=== PATIENT | female | born 1950 | race Caucasian/White ===

== ENCOUNTER → 2017-12-31 11:30 | Outpatient (CLI) | payer MEDICARE, SELFPAY ==
--- NOTE | 2017-12-31 11:36 | RAD_ITS ---
STUDY: X-RAY - UNILATERAL RIBS ( RIGHT ) WITH CHEST REASON FOR EXAM: Female, 67 years old. Posterior lower right rib pain following a fall. TECHNIQUE - RIBS: 3 view(s) of the ribs. TECHNIQUE - CHEST: Single PA view of the chest. COMPARISON: Comparison is made with prior chest radiograph dated June 11, 2017. FINDINGS - RIBS: Normal visualized ribs without a demonstrated fracture. FINDINGS - CHEST: The lungs are clear and expanded. There is no demonstrated pleural abnormality. Normal size heart. Normal mediastinum and farhan. Normal visualized pulmonary arteries. Normal visualized aortic arch and descending thoracic aorta. Normal visualized thoracic spine. Normal visualized ribs, clavicles, and shoulders. Large hiatal hernia. RAD/Ribs Uni Min 3V w/PA Chest IMPRESSION: RIBS: Normal x-ray examination of the ribs. CHEST: Large hiatal hernia. Electronically Signed: Kem Holley MD at 12:44 EST Tel [phone], Service support ,
== END ==
PROVIDERS: Family Provider Internal Medicine; PCP Internal Medicine; Visit Provider Internal Medicine
DX: K44.9 Diaphragmatic hernia without obstruction or gangrene (principal); R07.81 Pleurodynia
CPT/HCPCS: 71101

== ENCOUNTER 2019-12-27 17:43 | Emergency (ER) | payer MEDICARE, SELFPAY ==
[2019-12-27 17:44] VITALS: BP 169/89; PULSE 87; RESP 20; TEMP 39.2; O2SAT 95; BMI 34.2
--- NOTE | 2019-12-27 19:17 | ED.DCSUM_ITS ---
- ER Visit Summary Date of Service: 12/27/19 Chief Complaint: Fever on Chemotherapy day 2 History of Present Illness: The patient is a 69 F history of multiple myeloma and has been hypertension. On day [address] Horn of oncology. Patient states tonight at 5 PM she developed a fever of 102. No vomiting. No diarrhea. No dysuria. No significant cough. No severe abdominal pain. No headache, chest pain or neck stiffness. No rashes. Physical Examination: Older female no acute distress temperature 102.6. Does not look septic or toxic. H EENT exam unremarkable. Moist with membranes. Posterior pharynx erythema or exudate. TMs normal. Neck nontender. No lym phadenopathy. No meningismus. Lungs clear to auscultation bilaterally. Heart regular rhythm no murmur rate about 90. Abdomen soft, nontender, nondistended normal bowel sounds no peritoneal signs. Extremities moves all 4. No edema. Skin no rashes. No petechiae or purpura. Back nontender. Neurologically she is awake and alert with no focal motor deficits. Moving all 4 extremities. Test Results: Chest x-ray 2 views shows a hiatal hernia otherwise no acute abnormality read both myself and the radiologist. No infiltrate. CBC shows a white count 8. Hemoglobin 9.3 she runs a baseline anemia but there is no old CBCs in our computer for comparison. Chemistries unremarkable except BUN 27 creatinine 1.68 she has known renal insufficiency. Liver enzymes normal. UA positive nitrates 3+ bacteria but no whites or red cells. Urine and blood culture sent. Lactate 2.1. Emergency Department Course and Treatment: Older female on chemotherapy for multiple myeloma immunocompromised with a fever. She will undergo a neutropenic fever work-up. Treated with p.o. Tylenol and IV fluids. Treatment Plan: Repeat exam she is doing well. Currently her temperature is 100.3 after p.o. Tylenol. She received IV fluids. Exam is benign. Abdomen is benign. She and I discussed her test results. I spoke with the oncologist on- call was was Dr. Scout Valentine. Due to her urine he does want me to start her on a dose of IV Rocephin. Discharge her home on Keflex and they will follow-up tomorrow. Disposition: Discharge Impression: Fever and immunocompromised on chemotherapy Rule out UTI with urine culture pending History of multiple myeloma This note was generated with Dragon dictation software. It may contain incorrect words, spelling, and punctuation that were not noted in review of the chart prior to signing ED Disposition - Plan for ED Patient: Referrals: Quique Latif DO [Primary Care Provider] -
[2019-12-27 19:24] VITALS: BP 169/86; PULSE 87; RESP 20; TEMP 39.2; O2SAT 95
[2019-12-27] MEDS: 0.9% Normal Saline 1,000 ML 999 ML IV (19:25)
--- NOTE | 2019-12-27 19:59 | RAD_ITS ---
STUDY: X-RAY CHEST REASON FOR EXAM: Female, 69 years old. Fever TECHNIQUE: PA and lateral views of the chest COMPARISON: X-ray chest June 11, 2017 FINDINGS: The lungs are clear. There are no pleural effusions. There is no pneumothorax. The heart is normal in size. The visualized osseous structures are within normal limits. A large hiatal hernia is present. RAD/Chest PA and Lateral IMPRESSION: No acute thoracic pathology. Large hiatal hernia. Electronically Signed: Keny Mark, at 20:21 EST Tel , Service support ,
[2019-12-27 20:02] LABS: Absolute Lymphocyte Count 0.24 X10^3/uL (0.83-4.51); Absolute Neutrophil Count 8.2 X10^3/uL (2.0-7.7); Basophil# 0.02 X10^3/uL; Basophil% 0.2 % (0-1); Eosinophil# 0.01 X10^3/uL; Eosinophils% 0.1 % (0-5); Hematocrit 30.8 % (37-47); Hemoglobin 9.3 g/dL (12.0-15.0); Lymphocyte # 0.24 X10^3/ul (4.0); Lymphocyte % 2.7 % (19-41); Mean Corp Hgb Conc 30.2 g/dL (32-36); Mean Corpuscular Hgb 30.3 pg (27.0-32.0); Mean Corpuscular Volume 100.3 fL (81-99); Monocyte# 0.23 X10^3/uL; Monocyte% 2.6 % (0-10); NRBC Flagged by Analyzer 0.2 % (0-5); Neutrophil # 8.19 X10^3/uL (2.7-7.7); Neutrophil % 93.4 % (47-70); POSITIVE DIFFERENTIAL YES; Platelet Count 225 K/mm3 (150-450); RBC Distribution Width SD 54.7 fl (35.1-43.9); Red Blood Count 3.07 M/mm3 (4.2-5.4); White Blood Count 8.8 K/mm3 (4.4-11.0)
[2019-12-27 20:06] LABS: Differential Indicated SCAN CRITERIA MET
[2019-12-27 20:11] LABS: ALB/GLOB Ratio 0.9 RATIO (0.9-2.4); AST(SGOT) 28 U/L (15-37); Alanine Aminotransfer ALT/SGPT 31 U/L (13-56); Albumin, Serum 3.4 g/dL (3.2-5.0); Alkaline Phosphatase 83 U/L (45-117); Anion Gap 6 (5-15); BUN 27 mg/dL (7-18); BUN/Creat Ratio 16.1 RATIO (10-20); Calcium,Total 9.3 mg/dL (8.5-10.1); Chloride 110 mmol/L (98-107); Creatinine, Serum 1.68 mg/dL (0.55-1.02); EST Glomerular Filtration Rate 32 mL/min (>60); Est Glom Filt Rate - Afr Amer 39 mL/min (>60); Estimated Creatinine Clearance 23.85 ml/min; Globulin 3.8 g/dL (2.2-4.2); Glucose 87 mg/dL (74-106); Potassium 4.6 mmol/L (3.5-5.1); Protein, Total 7.2 g/dL (6.4-8.2); Sodium Level 140 mmol/L (136-145)
[2019-12-27 20:21] LABS: Differential Comment SCANNED
[2019-12-27 20:22] LABS: Lactic Acid 2.1 mmol/L (0.4-1.9)
[2019-12-27] MEDS: Acetaminophen 500 MG Tablet 1000 MG PO (20:47)
[2019-12-27 20:52] VITALS: BP 110/80; PULSE 91; RESP 20; TEMP 37.9; O2SAT 94
[2019-12-27 20:55] LABS: Mucous, Urine 0 SEEN /hpf (<or=2+); Red Blood Cells-Urine 0 SEEN /hpf (0-5); Squamous Epithelial Cells - UA 0 SEEN /hpf (5-10)
[2019-12-27 20:56] LABS: Color, Urine Yellow (Yellow); Glucose, Dipstick Normal (Normal); Ketone-Dipstick Negative (Negative); Leukocyte Esterase-Dipstick 25 /ul (Negative); Nitrite-Dipstick Positive (Negative); Occult Blood-Urine 25 /ul (Negative); Protein-Dipstick 30 mg/dl (Negative); Urine Bilirubin Dipstick Negative (Negative); Urine Clarity Sl. Cloudy (Clear); Urine Urobilinogen Normal (Normal)
[2019-12-27 21:18] LABS: Bacteria 3+ /hpf (None Seen); White Blood Cells 0-5 SEEN /hpf (0-5)
[2019-12-27 22:26] VITALS: BP 172/87; PULSE 74; RESP 17; TEMP 37.1; O2SAT 97
--- NOTE | 2019-12-27 22:28 | ED.DEP ---
ED Disposition - Plan for ED Patient: Disposition: Home or Assisted Living Instructions: FEBRILE ILLNESS, Uncertain Cause (Adult) Prescriptions: Cephalexin [Keflex] 500 mg PO Q6 #30 cap Prescription Printed Referrals: Irasema Horn MD [STAFF PHYSICIAN] - 1 Day Additional Instructions: Fluids and rest. Tylenol for fever. Follow-up with Dr. Moseley's office tomorrow. Return if feeling worse. We sent blood and urine cultures. We are waiting for those results. We will treat you for possible UTI since you have bacteria in your urine tonight. We will waiting on the culture results.
[2019-12-27] MEDS: Ceftriaxone 1 GM/50 ML BAG IV (22:35)
[2019-12-27 22:49] VITALS: BP 129/70; PULSE 72; TEMP 37.3; O2SAT 97
[2019-12-27 23:54] LABS: Reflex Lactate? Y
== END 2019-12-27 23:33 | disposition home or self-care (01) ==
PROVIDERS: Emergency Provider Emergency Medicine; PCP Student in an Organized Health Care Education/Training Program
DX: R50.2 Drug induced fever (principal); T45.1X5A Adverse effect of antineoplastic and immunosuppressive drugs, initial encounter; Y92.9 Unspecified place or not applicable; C90.00 Multiple myeloma not having achieved remission; I10 Essential (primary) hypertension; Z79.82 Long term (current) use of aspirin
CPT/HCPCS: 36415; 71046; 80053; 81001; 83605; 85025; 87040; 87077; 87086; 87088; 87186; 96365; 99285; J7030; A4216

== ENCOUNTER → 2020-01-16 10:05 | Outpatient (CLI) | payer MEDICARE, SELFPAY ==
[2019-12-27 17:44] VITALS: BMI 34.2
[2020-01-16] VITALS (7 sets, daily range): BP systolic 119–146; BP diastolic 58–72; PULSE 54–83; RESP 16; TEMP 36.6–36.9; O2SAT 95–98; BMI 31.6
[2020-01-16] MEDS: Acetaminophen 325 MG Tablet 650 MG PO (10:44)
== END ==
PROVIDERS: PCP Student in an Organized Health Care Education/Training Program; Referring Provider Internal Medicine Hematology & Oncology; Visit Provider Internal Medicine Hematology & Oncology
DX: Z51.89 Encounter for other specified aftercare (principal); C90.00 Multiple myeloma not having achieved remission; D64.81 Anemia due to antineoplastic chemotherapy
CPT/HCPCS: 36430; 86850; 86900; 86901; 86920; 86922; J7040; P9016; A4216

== ENCOUNTER → 2020-02-12 11:51 | Outpatient (CLI) | payer MEDICARE, SELFPAY ==
[2020-01-16 10:17] VITALS: BMI 31.6
[2020-02-12 12:01] VITALS: BP 109/48; PULSE 65; RESP 16; TEMP 36.2; O2SAT 98; BMI 31.6
[2020-02-12] MEDS: 0.9% Saline Lock 10 ML Syringe IV (12:23)
[2020-02-12 12:52] VITALS: BP 95/46; PULSE 61; RESP 18; TEMP 36.9; O2SAT 99
[2020-02-12 13:52] VITALS: BP 99/51; PULSE 63; RESP 18; TEMP 36.7; O2SAT 97
[2020-02-12 14:45] VITALS: BP 119/51; PULSE 57; RESP 18; TEMP 36.6; O2SAT 98
== END ==
PROVIDERS: PCP Student in an Organized Health Care Education/Training Program; Referring Provider Internal Medicine Hematology & Oncology; Visit Provider Internal Medicine Hematology & Oncology
DX: Z51.89 Encounter for other specified aftercare (principal); C90.00 Multiple myeloma not having achieved remission
CPT/HCPCS: 36430; 86850; 86900; 86901; 86920; 86922; J7040; P9016; A4216

== ENCOUNTER → 2020-02-20 08:23 | Outpatient (CLI) | payer MEDICARE, SELFPAY ==
[2020-02-12 12:01] VITALS: BMI 31.6
[2020-02-20] VITALS (9 sets, daily range): BP systolic 99–136; BP diastolic 48–68; PULSE 63–83; RESP 16; TEMP 36.4–37.6; O2SAT 97–99; BMI 32.1
[2020-02-20] MEDS: Acetaminophen 325 MG Tablet 650 MG PO (09:07)
== END ==
PROVIDERS: PCP Student in an Organized Health Care Education/Training Program; Referring Provider Internal Medicine Hematology & Oncology; Visit Provider Internal Medicine Hematology & Oncology
DX: Z51.89 Encounter for other specified aftercare (principal); D64.9 Anemia, unspecified
CPT/HCPCS: 36430; 86850; 86900; 86901; 86920; 86922; J7040; P9016; A4216

== ENCOUNTER 2021-01-06 12:05 | Outpatient (RCR) | payer MEDICARE, SELFPAY ==
[2020-02-20 09:07] VITALS: BMI 32.1
== END 2021-01-06 23:59 ==
LOC: IMMUN 12:05
PROVIDERS: PCP Student in an Organized Health Care Education/Training Program; Visit Provider Family Medicine
DX: Z23 Encounter for immunization (principal)
CPT/HCPCS: 0011A; 0012A

== ENCOUNTER 2022-10-19 12:10 | Emergency (ER) | payer MEDICARE, SELFPAY ==
[2022-10-19 12:11] VITALS: BP 145/80; PULSE 93; RESP 18; TEMP 38.9; O2SAT 94; BMI 28.5
[2022-10-19 13:32] VITALS: BP 126/78; PULSE 78; RESP 16; TEMP 38.1; O2SAT 98
--- NOTE | 2022-10-19 13:41 | EKG12_ITS ---
Test Reason : Blood Pressure : / mmHG Vent. Rate : 089 BPM Atrial Rate : 089 BPM P-R Int : 146 ms QRS Dur : 098 ms QT Int : 366 ms P-R-T Axes : 045 025 031 degrees QTc Int : 445 ms Normal sinus rhythm Normal ECG Confirmed by RAMANDEEP ELISE, OLAF ([id number]), publications editor WALKER PATTERSON ([id number]) on 10/21/2022 11:09:54 AM Referred By: Confirmed By:OLAF SABILLON MD
[2022-10-19 13:43] VITALS: O2SAT 98
--- NOTE | 2022-10-19 13:51 | NURSING ---
NO OLD EKGS
[2022-10-19 14:08] LABS: Absolute Lymphocyte Count 0.23 X10^3/uL (0.83-4.51); Absolute Neutrophil Count 4.5 X10^3/uL (2.0-7.7); Basophil# 0.01 X10^3/uL; Basophil% 0.2 % (0-1); Hematocrit 39.1 % (37-47); Hemoglobin 12.7 g/dL (12.0-15.0); Lymphocyte # 0.23 X10^3/ul (0.83-4.51); Lymphocyte % 4.2 % (19-41); Mean Corp Hgb Conc 32.5 g/dL (32-36); Mean Corpuscular Hgb 34.3 pg (27.0-32.0); Mean Corpuscular Volume 105.7 fL (81-99); Mean Platelet Vol. 9.9 fl (6.2-12.0); Monocyte# 0.76 X10^3/uL; Monocyte% 13.8 % (0-10); NRBC Flagged by Analyzer 0 % (0-5); Neutrophil # 4.47 X10^3/uL (2.7-7.7); Neutrophil % 81.4 % (47-70); POSITIVE DIFFERENTIAL YES; Platelet Count 109 K/mm3 (150-450); RBC Distribution Width CV 13.9 % (11.6-14.6); RBC Distribution Width SD 54.5 fl (35.1-43.9); White Blood Count 5.5 K/mm3 (4.4-11.0)
[2022-10-19 14:09] LABS: Differential Indicated SCAN CRITERIA MET
[2022-10-19 14:15] LABS: Anion Gap 8 (5-15); BUN 24 mg/dL (7-18); BUN/Creat Ratio 16.2 RATIO (10-20); Chloride 109 mmol/L (98-107); Creatinine, Serum 1.48 mg/dL (0.55-1.02); EST Glomerular Filtration Rate 37 mL/min (>60); Est Glom Filt Rate - Afr Amer 45 mL/min (>60); Estimated Creatinine Clearance 25.93 ml/min; Glucose 124 mg/dL (74-106); Sodium Level 139 mmol/L (136-145)
--- NOTE | 2022-10-19 14:18 | RAD_ITS ---
STUDY: X-RAY CHEST REASON FOR EXAM: Female, 72 years old. cough/sob TECHNIQUE: Single AP portable view of the chest. COMPARISON: None. FINDINGS: Poor inspiration with some bibasilar atelectasis. There is no demonstrated pleural abnormality. There is moderate cardiac enlargement. Large hiatal hernia. Normal visualized pulmonary arteries. Normal visualized aortic arch and descending thoracic aorta. Normal visualized thoracic spine. Healed fracture the posterior lateral right seventh rib. There is no demonstrated abnormality of the visualized soft tissue structures of the upper abdomen. RAD/Chest 1 View (Portable) IMPRESSION: Poor inspiration with some bibasilar atelectasis. Electronically Signed: Toñito Coker MD at 15:02 EST ,
--- NOTE | 2022-10-19 14:24 | EX.ED.VIS.UR ---
HPI <TORRI Guerra - Last Filed: 10/19/22 15:21> HPI - URI History of Present Illness Chief Complaint: Cough Narrative Narrative: Patient presents today for cold-like symptoms that started yesterday. She states she thinks she may have had a fever yesterday because she felt chilled and she also began coughing yesterday. 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 Patient also has a history of shingles that erupted under both breasts and across her upper abdomen. Since then she has had pain in this area but is being treated for this by her PCP with gabapentin. Patient denies dysuria, hematuria, shortness of breath, chest pain, abdominal pain, nausea, vomiting, and diarrhea. She denies sick contacts. [facility] <TORRI Guerra - Last Filed: 10/19/22 15:21> [facility] Home Medications acyclovir 400 mg tablet 400 mg PO BID 12/27/19 [History Last Taken Unknown] allopurinol 300 mg tablet 300 mg PO DAILY 12/27/19 [History Last Taken Unknown] aspirin 81 mg chewable tablet 81 mg PO DAILY@0800 12/27/19 [History Last Taken Unknown] beclomethasone dipropionate 80 mcg/actuation HFA breath activated aerosol 1 puff inhalation BID 12/27/19 [History Last Taken Unknown] carvedilol 6.25 mg tablet 6.25 mg PO BID 12/27/19 [History Last Taken Unknown] cephalexin 500 mg capsule 500 mg PO Q6 #30 caps 12/27/19 [Rx Last Taken Unknown] dexamethasone 4 mg tablet 20 mg PO .COMPLEX 12/27/19 [History Last Taken Unknown] lenalidomide 25 mg capsule 25 mg PO DAILY 12/27/19 [History Last Taken Unknown] lisinopril 20 mg tablet 20 mg PO DAILY 12/27/19 [History Last Taken Unknown] ondansetron 4 mg disintegrating tablet 8 mg PO Q8H PRN PRN Nausea 12/27/19 [History Last Taken Unknown] pregabalin 75 mg capsule 75 mg PO BID 12/27/19 [History Last Taken Unknown] Allergy/AdvReac Type Severity Reaction Status Date / Time erythromycin base Allergy Hives Verified 10/19/22 12:11 lactose AdvReac Diarrhea Verified 10/19/22 12:11 Social History Smoking Status: Never smoker EXAM <TORRI Guerra - Last Filed: 10/19/22 15:21> Physical Exam Const Vital Signs: 10/19/22 12:11 10/19/22 13:32 10/19/22 13:32 Temperature 102.1 F H 100.6 F H Temperature Source Temporal Oral Pulse Rate 93 78 Respiratory Rate 18 16 Respiratory Pattern Normal Blood Pressure 145/80 H 126/78 H Blood Pressure Mean 101 94 Pulse Ox 94 98 Oxygen Delivery Method Room Air Room Air 10/19/22 13:43 10/19/22 13:43 10/19/22 15:01 Temperature 99.1 F Temperature Source Pulse Rate 76 Respiratory Rate 18 Respiratory Pattern Blood Pressure 134/78 H Blood Pressure Mean Pulse Ox 98 99 Oxygen Delivery Method Room Air Room Air <Dr. Ciro Craig DO - Last Filed: 10/19/22 15:12> Physical Exam Const Vital Signs: 10/19/22 12:11 10/19/22 13:32 10/19/22 13:32 Temperature 102.1 F H 100.6 F H Temperature Source Temporal Oral Pulse Rate 93 78 Respiratory Rate 18 16 Respiratory Pattern Normal Blood Pressure 145/80 H 126/78 H Blood Pressure Mean 101 94 Pulse Ox 94 98 Oxygen Delivery Method Room Air Room Air 10/19/22 13:43 10/19/22 13:43 10/19/22 15:01 Temperature 99.1 F Temperature Source Pulse Rate 76 Respiratory Rate 18 Respiratory Pattern Blood Pressure 134/78 H Blood Pressure Mean Pulse Ox 98 99 Oxygen Delivery Method Room Air Room Air MDM <TORRI Guerra - Last Filed: 10/19/22 15:21> [facility] MDM Narrative Medical decision making narrative: Patient positive for influenza A. I have educated her on supportive care measures and encouraged her to drink plenty of fluids. She stated she is able to drink p.o. fluids without difficulty so I do not feel IV fluids are necessary. Chest x-ray without infiltrate. She was given Tylenol for fever control. O2 sat 99% upon reexamination. Patient is having no respiratory difficulty. I am comfortable with patient discharging home with return instructions. Patient is comfortable with plan. Lab Data Attestation: I reviewed the patient's lab results. Lab results narrative: Low red blood cell count, elevated MCV and MCH, platelet count 109. Evaded monocytes and neutrophils and decreased lymphocytes. Elevated BUN and creatinine. Labs: Laboratory Results - last 24 hr 10/19/22 10/19/22 13:55 13:55 WBC 5.5 RBC 3.70 L Hgb 12.7 Hct 39.1 MCV 105.7 H MCH 34.3 H MCHC 32.5 RDW Std Deviation 54.5 H RDW Coeff of Kameron 13.9 Plt Count 109 L MPV 9.9 Immature Gran % (Auto) 0.400 Neut % (Auto) 81.4 H Lymph % (Auto) 4.2 L Long % (Auto) 13.8 H Eos % (Auto) 0.0 Baso % (Auto) 0.2 Absolute Neuts (auto) 4.5 Absolute Lymphs (auto) 0.23 L Nucleated RBC % 0 Differential Comment SCANNED Sodium 139 Potassium 4.0 Chloride 109 H Carbon Dioxide 22.0 Anion Gap 8 BUN 24 H Creatinine 1.48 H Estim Creat Clear Calc 25.93 Est GFR (MDRD) Af Amer 45 L Est GFR (MDRD) Non-Af 37 L BUN/Creatinine Ratio 16.2 Glucose 124 H Calcium 9.0 Radiography Diagnostic Testing: Clinical Impression(s) from Imaging Studies Chest X-Ray 10/19/22 14:18 IMPRESSION: Poor inspiration with some bibasilar atelectasis. Electronically Signed: Toñito Coker MD at 15:02 EST Reading Location ID and State: [address] [place] [address] Tel , Service support , Chest x-ray reviewed and I agree with radiologist impressions. This has also been reviewed and interpreted by attending ED physician. EKG Initial EKG: Attestation: I personally reviewed and interpreted this EKG as follows: Interpretation: Sinus Rhythm Comments: [address] elevation, no signs of cardiac ischemia. This EKG has also been reviewed by attending ED physician. <Dr. Ciro Craig, DO - Last Filed: 10/19/22 15:12> [facility] Lab Data Labs: Laboratory Results - last 24 hr 10/19/22 10/19/22 13:55 13:55 WBC 5.5 RBC 3.70 L Hgb 12.7 Hct 39.1 MCV 105.7 H MCH 34.3 H MCHC 32.5 RDW Std Deviation 54.5 H RDW Coeff of Kameron 13.9 Plt Count 109 L MPV 9.9 Immature Gran % (Auto) 0.400 Neut % (Auto) 81.4 H Lymph % (Auto) 4.2 L Long % (Auto) 13.8 H Eos % (Auto) 0.0 Baso % (Auto) 0.2 Absolute Neuts (auto) 4.5 Absolute Lymphs (auto) 0.23 L Nucleated RBC % 0 Differential Comment SCANNED Sodium 139 Potassium 4.0 Chloride 109 H Carbon Dioxide 22.0 Anion Gap 8 BUN 24 H Creatinine 1.48 H Estim Creat Clear Calc 25.93 Est GFR (MDRD) Af Amer 45 L Est GFR (MDRD) Non-Af 37 L BUN/Creatinine Ratio 16.2 Glucose 124 H Calcium 9.0 Radiography Diagnostic Testing: Clinical Impression(s) from Imaging Studies Chest X-Ray 10/19/22 14:18 IMPRESSION: Poor inspiration with some bibasilar atelectasis. Electronically Signed: Toñito Coker MD at 15:02 EST , Treatment and Re-Evaluation Narrative: I performed a history and physical examination of the patient and discussed management plan with the physician tutoring assistant. I reviewed the physician tutoring assistant's note and agree with the documented findings and plan of care. Patient developed cough and fever. No infiltrate on chest x-ray. She appears well-hydrated. She is influenza A positive. Would recommend supportive care at home Ciro Craig DO MS Discharge Plan Triage Chief Complaint: Cough Other Complaint: General Illness ED Midlevel Provider: Ashtyn Ram ED Provider: Ciro Craig Dx/Rx/DC Orders Clinical Impression: Influenza A Instructions: ED Influenza (Adult) Prescriptions: No Action carvedilol 6.25 MG tablet 6.25 mg PO BID lisinopril 20 MG tablet 20 mg PO DAILY acyclovir 400 MG tablet 400 mg PO BID dexamethasone 4 mg tablet 20 mg PO .COMPLEX Rx Instructions: day 1 and day 8 of chemo aspirin 81 MG tablet,chewable 81 mg PO DAILY@0800 allopurinol 300 MG tablet 300 mg PO DAILY ondansetron 4 MG tablet 8 mg PO Q8H PRN PRN (Reason: Nausea) pregabalin 75 MG capsule 75 mg PO BID lenalidomide 25 mg capsule 25 mg PO DAILY Rx Instructions: starting on january 15 beclomethasone dipropionate 80 mcg/actuation HFA aerosol breath activated 1 puff inhalation BID cephalexin 500 MG capsule 500 mg PO Q6 Qty: 30 0RF Primary Care Provider: Quique Latif Referrals: Quique Latif DO [Primary Care Provider] - 5-7 Days Activity Restrictions/Additional Instructions: Stay well-hydrated. Alternate between ibuprofen and Tylenol for fever control. Please return if symptoms worsen. Disposition Disposition: Home, Self Care Discharge Date/Time: 10/19/22 15:02
[2022-10-19 14:39] LABS: Differential Comment SCANNED
[2022-10-19] MEDS: Acetaminophen 325 MG Tablet 650 MG PO (14:42)
[2022-10-19 15:01] VITALS: BP 134/78; PULSE 76; RESP 18; TEMP 37.3; O2SAT 99
== END 2022-10-19 15:02 | disposition home or self-care (01) ==
PROVIDERS: Emergency Provider Emergency Medicine; PCP Student in an Organized Health Care Education/Training Program; Visit Provider Emergency Medicine
DX: J10.1 Influenza due to other identified influenza virus with other respiratory manifestations (principal)
CPT/HCPCS: 71045; 80048; 85025; 87426; 87804; 93005; 94760; 99284

== ENCOUNTER → 2023-12-10 | Outpatient (CLI) | payer MEDICARE, SELFPAY | END | disposition home or self-care (01) | LOC: LABSPEC 12:14 | PROVIDERS: PCP Student in an Organized Health Care Education/Training Program; Referring Provider Specialist; Visit Provider Specialist | DX: C90.00 Multiple myeloma not having achieved remission (principal) | CPT/HCPCS: 86850; 86900; 86901 ==

== ENCOUNTER 2025-06-11 13:51 | Inpatient (IN) | payer MEDICARE, SELFPAY ==
[2025-06-11] VITALS (24 sets, daily range): BP systolic 136–213; BP diastolic 63–189; PULSE 57–87; RESP 18–28; TEMP 36.6–38.8; O2SAT 91–98; BMI 30.2; BMI 35.2; BMI 31.8
--- NOTE | 2025-06-11 13:52 | EKG12_ITS ---
Test Reason : Blood Pressure : */* mmHG Vent. Rate : 84 BPM Atrial Rate : 87 BPM P-R Int : 124 ms QRS Dur : 100 ms QT Int : 426 ms P-R-T Axes : 72 29 23 degrees QTcB Int : [address] abnormality Prolonged QT Abnormal ECG Confirmed by LISA ELISE, KARI ([id number]), editor sound VÍCTOR LAUREN ([id number]) on 06/13/2025 7:35:19 AM Referred By: Emeli Dinh Confirmed By: KARI GONZALEZ MD
--- NOTE | 2025-06-11 13:52 | CT_ITS ---
PROCEDURE: STROKE BRAIN/HEAD WITHOUT CONT 06/11/2025 REASON FOR EXAM: NEURO DEFICIT, ACUTE, STROKE SUSPECTED TECHNIQUE: STROKE BRAIN/HEAD WITHOUT CONT Coronal and Sagittal reconstruction series were provided. One or more dose reduction techniques were used (e.g., Automated exposure control, adjustment of the mA and/or kV according to patient size, use of iterative reconstruction technique. RADIATION DOSE SUMMARY: CTDlvol: 44 mGy DLP: 914 mGycm COMPARISON: None FINDINGS: Brain: There is no evidence of hemorrhage, acute ischemia or mass. No extra- axial fluid collection, midline shift or mass effect. Low-density is seen in the periventricular white matter and deep white matter of the frontal and parietal lobes. CSF Spaces: Mild generalized cerebral atrophy. Partially empty sella turcica. Sinuses/Mastoids: Clear Bones: No fracture CT/STROKE Brain/Head without Cont IMPRESSION: 1. No evidence of intracranial hemorrhage or acute ischemia. 2. Changes of chronic microvascular ischemia and volume loss. The findings and impression of the report were called directly to Dr. Emeli bernal at 2:11 p.m. Reading Location: [id number]
--- NOTE | 2025-06-11 13:57 | CT_ITS ---
PROCEDURE: STROKE CTA HEAD AND NECK W/CON 06/11/2025 REASON FOR EXAM: NEURO DEFICIT, ACUTE, STROKE SUSPECTED TECHNIQUE: STROKE CTA HEAD AND NECK W/CON Multiplanar Sagittal and Coronal images were obtained. 3D post processing was performed CONTRAST: Isovue 370 VOLUME: 100 mL One or more dose reduction techniques were used (e.g., Automated exposure control, adjustment of the mA and/or kV according to patient size, use of iterative reconstruction technique). RADIATION DOSE SUMMARY: CTDlvol: 44.99 mGy DLP: 914.22 mGycm COMPARISON: None FINDINGS: Subcentimeter hypodense nodule in the right lobe of the thyroid. Aortic Arch: Normal size and branching pattern. Mild atherosclerotic plaque. Brachiocephalic and Subclavians: Mild atherosclerotic plaque without significant stenosis. RIGHT Carotid: Right CCA: Unremarkable. Right ICA: Unremarkable. Right ECA: Unremarkable. LEFT Carotid: Left CCA: Unremarkable. The left common carotid artery originates from the aortic arch. This is a normal variant called a bovine origin. Left ICA: Unremarkable. Left ECA: Unremarkable. Vertebrals: Codominant. Arise from the subclavians. Both vertebrals form the basilar. RIGHT Vertebral: Unremarkable. LEFT Vertebral: Unremarkable. Anatomy: [place] anatomy is normal. Aneurysm or avm: No intracranial aneurysms or large vascular malformations are identified. Anterior cerebral arteries: Unremarkable: Middle cerebral arteries: Unremarkable. Basilar artery: Unremarkable. Posterior cerebral arteries: Unremarkable. Other major branches of the posterior circulation: Unremarkable. Major venous structures: Unremarkable. Other findings: Neck: Hypodense nodule in the right lobe of the thyroid. Lungs: Bones: CT/STROKE CTA Head AND Neck W/Con IMPRESSION: No significant stenosis is seen. Reading Location: [id number]
[2025-06-11 14:40] LABS: Hematocrit 37.9 % (37-47); Hemoglobin 12.6 g/dL (12.0-15.0); Immature Granulocytes Count 0.130 X10^3/uL (0.0-0.0); Mean Corp Hgb Conc 33.2 g/dL (32-36); Mean Corpuscular Volume 100.5 fL (81-99); Mean Platelet Vol. 11.3 fl (6.2-12.0); NRBC Flagged by Analyzer 0.2 % (0-5); POSITIVE COUNT YES; POSITIVE DIFFERENTIAL YES; Platelet Count 63 K/mm3 (150-450); RBC Distribution Width CV 15.2 % (11.6-14.6); RBC Distribution Width SD 56.5 fl (35.1-43.9); Red Blood Count 3.77 M/mm3 (4.2-5.4); White Blood Count 11.4 K/mm3 (4.4-11.0)
[2025-06-11 14:43] LABS: Differential Indicated SCAN CRITERIA MET
--- NOTE | 2025-06-11 14:49 | CT_ITS ---
PROCEDURE: CT ABDOMEN WITHOUT IV CONTRAST; CT CHEST WITHOUT CONTRAST 06/11/2025 REASON FOR EXAM: FALL OUT OF BED/AMS TECHNIQUE: Noncontrast CT of the chest and abdomen with multiplanar coronal and Sagittal reconstruction series. Noncontrast technique limits evaluation of the vasculature and abdominopelvic viscera. One or more dose reduction techniques were used (e.g., Automated exposure control, adjustment of the mA and/or kV according to patient size, use of iterative reconstruction technique. RADIATION DOSE SUMMARY: DLP: 1574.27 mGycm COMPARISON: None. FINDINGS: Lungs/pleura: Respiratory motion artifact. No focal airspace consolidation/contusion. No pneumothorax or pleural effusion. Central airways are patent. Mediastinum: Large hiatal hernia containing the majority of the stomach, a few loops of bowel, the tail of the pancreas, and upper mesenteric fat/vasculature. No mediastinal hematoma. Heart: Normal in size. No pericardial effusion. Mild coronary artery calcifications. Aorta: Mildly tortuous but normal in caliber. Liver: No significant abnormality. No suspicious lesion or evidence of acute injury. Small 1.6 cm circumscribed benign cyst versus hemangioma in the lateral right lobe. Gallbladder: Not visualized, likely surgically absent. Spleen: Normal in size, no evidence of acute injury. Pancreas: Grossly unremarkable. Adrenals: Unremarkable. Kidneys: No significant abnormality. No evidence of acute injury or mass lesion. No hydronephrosis on either side. Excreted IV contrast within the renal collecting systems from recent CTA exam. Bowel: Large hiatal hernia as noted above. Otherwise the visualized bowel segments demonstrate no evidence of obstruction or active inflammatory process. Normal appendix. Peritoneum / Retroperitoneum: No ascites or free air visualized. Bones: Evaluation of the thorax is limited due to patient motion artifact. However, no definite acute fracture or dislocation is identified. There are several bilateral chronic healed rib fracture deformities with callus formation. Multilevel degenerative changes of the spine. Qualitative osteopenia. Chronic anterior wedge compression deformity of T11. No suspicious osseous lesion. Prominent osseous hemangiomas within L2 and L3 vertebral bodies noted. CT/Abdomen without IV Contrast IMPRESSION: Limited noncontrast study, degraded by motion artifact. No acute traumatic findings identified in the chest or abdomen. Large hiatal hernia, as described above. Reading Location: [id number]
[2025-06-11 14:54] LABS: Prothrombin Time (Protime)PT. 13.4 SECONDS (11.7-14.9)
[2025-06-11 14:55] LABS: Partial Thromboplast Time 21.3 Seconds (24.1-36.2)
[2025-06-11 15:13] LABS: SITE Not entered; VBG BASE EXCESS -1 mmol/L (-1.0-3.5); VBG PO2 30 mmHg (25-40); VBG SO2 65 % (50-70); VBG TCO2 23 mmol/L (23-33)
[2025-06-11 15:26] LABS: Barbiturate Urine NEGATIVE (< 200 ng/mL); Benzodiazepine Urine NEGATIVE (< 200 ng/mL); PCP Urine NEGATIVE (< 25 ng/mL); THC Urine NEGATIVE (< 50 ng/mL)
[2025-06-11 15:34] LABS: AST(SGOT) 22 U/L (<=31); Alanine Aminotransfer ALT/SGPT 18 U/L (<=34); Albumin, Serum 4.2 g/dL (3.4-4.8); Alkaline Phosphatase 60 U/L (35-104); Anion Gap 16 (5-15); BUN 27 mg/dL (4-19); BUN/Creat Ratio 22.0 RATIO (10-20); Calcium,Total 9.1 mg/dL (7.6-11.0); Carbon Dioxide 18.8 mmol/L (21.0-32.0); Chloride 101 mmol/L (98-108); Estimated Creatinine Clearance 38.71 ml/min (50-250); Globulin 2.1 g/dL (2.2-4.2); Glucose 103 mg/dL (70-99); Potassium 4.0 mmol/L (3.3-5.1); Troponin T High Sensitivity 50 ng/L (<=14)
[2025-06-11 15:35] LABS: Color, Urine Straw (Yellow); Glucose, Dipstick Normal (Normal); Ketone-Dipstick Negative (Negative); Leukocyte Esterase-Dipstick Negative /ul (Negative); Mucous, Urine 0 SEEN /hpf (<or=2+); Nitrite-Dipstick Positive (Negative); Occult Blood-Urine 50 /ul (Negative); Protein-Dipstick 30 mg/dl (Negative); Specific Gravity, Urine 1.010 (1.002-1.030); Squamous Epithelial Cells - UA 0 SEEN /hpf (5-10); Urine Bilirubin Dipstick Negative (Negative)
--- NOTE | 2025-06-11 15:40 | EDS_ITS ---
HPI History of Present Illness Chief Complaint: Stroke Alert Narrative Narrative: Patient is a 75-year-old female presenting to the emergency department for altered mental status. Patient has a past medical history of multiple myeloma and received her transfusion on Wednesday. states that he left home at 8 AM this morning and she was at her baseline. States that when he got home at around 130 she was on the ground beside her bed and was not answering anything appropriately. EMS was called. Additional history limited due to patient AMS and not at ED at this time. Stroke team called by EMS prior to arriving. PFSH PFSH Medical History unable to obtain Home Medications ?Medication ?Instructions ?Recorded ?Last Taken ?Type acyclovir 400 mg tablet 400 mg PO BID 12/27/19 Unkno wn History allopurinol 300 mg tablet 300 mg PO DAILY 12/27/19 Unk nown History aspirin 81 mg chewable tablet 81 mg PO DAILY@0800 12/09 07/28 Unknown History beclomethasone dipropionate 80 1 puff inhalation BID 0 12/27/19 Unknown History mcg/actuation HFA breath activated aerosol carvedilol 6.25 mg tablet 6.25 mg PO BID 12/27/19 Unkn own History cephalexin 500 mg capsule 500 mg PO Q6 #30 caps Unknown Rx dexamethasone 4 mg tablet 20 mg PO .COMPLEX 12/27/19 U nknown History lenalidomide 25 mg capsule 25 mg PO DAILY 12/27/19 Unk nown History lisinopril 20 mg tablet 20 mg PO DAILY 12/27/19 Unkn own History ondansetron 4 mg disintegrating 8 mg PO Q8H PRN PRN Na usea 12/27/19 Unknown History tablet pregabalin 75 mg capsule 75 mg PO BID 12/27/19 Unknow n History Allergy/AdvReac Type Severity Reaction Status Date / Time naproxen (From Naprosyn) Allergy Mild Hives Verified 06/11/25 15:19 erythromycin base Allergy Hives Verified 10/19/22 12:11 lactose AdvReac Diarrhea Verified 10/19/22 12:11 Family History unable to obtain Surgical History unable to obtain Social History Smoking Status: Never smoker ROS ROS ED Review of Systems ROS Unobtainable: due to encephalopathy EXAM Physical Exam Narrative Exam Narrative: Vital signs: Reviewed General: Not alert, appears unkempt. HEENT: Head is normocephalic and atraumatic, sinuses nontender, pupils equal round and reactive. Nares are patent. Oropharynx and throat exams normal. Neck: Supple without lymphadenopathy nontender Cardiovascular: Regular rate and rhythm, no murmurs. No rubs or gallops. Normal S1 and S2 Respiratory: Clear to auscultation bilaterally. No wheezes, rales, rhonchi Abdominal: Soft and tender. Normal bowel sounds. No guarding or rebound. Nonsurgical abdomen. Extremities: Moving all extremities. Bruising to left lower abdomen that appears old with small abrasion. No active bleeding. Bruising to right buttocks as well, appears old. Skin: No rash or redness. Const Vital Signs: 06/11/25 13:52 06/11/25 13:52 06/11/25 13:53 Temperature Temperature Source Pulse Rate 73 Respiratory Rate 18 Blood Pressure 167/126 H 160/100 H Blood Pressure Mean 139 120 Pulse Ox 93 93 Oxygen Delivery Method Room Air Room Air 06/11/25 14:07 06/11/25 14:21 06/11/25 14:22 Temperature 97.8 F Temperature Source Axillary Pulse Rate 74 65 71 Respiratory Rate 22 H 22 H 22 H Blood Pressure 172/159 H 188/118 H 188/118 H Blood Pressure Mean 163 141 141 Pulse Ox 94 93 94 Oxygen Delivery Method Room Air Room Air Room Air 06/11/25 15:06 06/11/25 15:07 06/11/25 15:11 Temperature 97.8 F 101 F H Temperature Source Axillary Core Pulse Rate 74 66 Respiratory Rate 24 H 20 H Blood Pressure 160/100 H 136/103 H Blood Pressure Mean 120 114 Pulse Ox 94 96 97 Oxygen Delivery Method Room Air Room Air 06/11/25 15:16 06/11/25 15:16 06/11/25 15:47 Temperature 101.1 F H 101.5 F H Temperature Source Core Core Pulse Rate 62 Respiratory Rate 20 H Blood Pressure 167/66 H 167/66 H 149/115 H Blood Pressure Mean 92 92 127 Pulse Ox 97 91 Oxygen Delivery Method 06/11/25 16:00 06/11/25 16:24 Temperature 101.6 F H 101.8 F H Temperature Source Core Oral Pulse Rate 87 Respiratory Rate 22 H Blood Pressure 176/75 H 147/75 H Blood Pressure Mean 98 99 Pulse Ox 96 95 Oxygen Delivery Method Room Air Neuro Neuro Narrative: Patient does not follow commands. She is moving all of her extremities. No obvious facial asymmetry. NIHSS NIHSS Initial: 1a Level of Consciousness: 2 1b LOC Questions (Score 2 if aphasic/stupor): 2 1c LOC Commands (Only score 1st attempt): 2 2 Best Gaze (If aphasic, use reflexive mvmts.): 0 3 Visual: 0 4 Facial Palsy: 0 5 Motor Arm Right (UN = amputation/fusion): UN 5 Motor Arm Left: UN 6 Motor Leg Right: UN 6 Motor Leg Left: UN 7 Limb ataxia (Only + if out of proportion): UN 8 Sensory (Aphasia/stupor=0 or 1, coma=2): 1 9 Best Language: 3 10 Dysarthria (mute, coma=2, intubated=UN): 2 11 Extinction and Inattention (only scored if +): 0 Total Score: 12 Sepsis Attestation Sepsis Alert: Yes Sepsis Attestation: Agree w/Sepsis Possible Source of Sepsis: Other (Urine) Sepsis Organ Dysfunction Criteria Present: Platelets <100,000 / uL and Lactic Acid > 2 mmol/L MDM MDM MDM Narrative Medical decision making narrative: Patient is a 75-year-old female presenting to the emergency department for altered mental status. Patient was seen and examined. She arrives hypertensive at 167/126. She is afebrile on arrival. Stroke team was called by EMS prior to arrival. On evaluation in the hallway the patient is not following commands, NIH of 12. I do suspect more encephalopathic versus stroke however hemorrhagic stroke versus ischemic is still in the differential. Stroke team continued, CT brain and CTA head and neck were obtained. CT brain shows no acute intracranial hemorrhage or ischemia. CTA head and neck shows no LVO. Discussion with stroke neurologist in the patient's room with telestroke determined likely encephalopathic given negative CT and CTA and prolonged symptoms after discussion with who arrived at bedside. states that she started acting differently on Wednesday. And it has worsened since then. CBC with a mild leukocytosis of 11.4 and a normal hemoglobin of 12.6. She is thrombocytopenic at 63. Mildly elevated anion gap of 16. Appears to be her baseline kidney function. Electrolytes otherwise unremarkable. TSH within normal limits. Lactate elevated at 2.5. Given elevated white count and lactate with now fever and altered mental status, patient given vancomycin and Zosyn and 2 blood cultures were obtained. EKG with very poor baseline however no obvious ST elevation or depression noted in contiguous leads. Initial troponin mildly elevated at 50 likely due to her underlying sepsis. Given the 's additional history of possible fall from bed and the bruising on her lower abdomen CT of the chest and abdomen pelvis were ordered. It showed no acute traumatic findings or intra-abdominal pathology that could be causing her sepsis. Urinalysis with nitrites and leukoesterase. Urine drug screen negative. Patient admitted to the hospitalist, Dr. Colón for managment of her AMS likely secondary from urosepsis. History & Record Review Discussion w/independent historian: EMS personnel and Family Additional record(s) reviewed:: Prior outpatient record Lab Data Attestation: I reviewed the patient's lab results. Labs: Laboratory Results - last 24 hr 06/11/25 06/11/25 06/11/25 11:26 14:28 14:37 WBC 11.4 H RBC 3.77 L Hgb 12.6 Hct 37.9 MCV 100.5 H MCH 33.4 H MCHC 33.2 RDW Std Deviation 56.5 H RDW Coeff of Kameron 15.2 H Plt Count 63 L MPV 11.3 Immature Gran % (Auto) 1.100 H Neut % (Auto) 86.8 H Lymph % (Auto) 2.4 L [place] % (Auto) 9.6 Eos % (Auto) 0.0 Baso % (Auto) 0.1 Absolute Neuts (auto) 9.9 H Absolute Lymphs (auto) 0.27 L Nucleated RBC % 0.2 Differential Comment Platelet Estimate SLT DEC PT 13.4 INR 1.0 APTT 21.3 L Sodium 136 Potassium 4.0 Chloride 101 Carbon Dioxide 18.8 L Anion Gap 16 H BUN 27 H Creatinine 1.24 H Estim Creat Clear Calc 38.71 L Est GFR (MDRD) Non-Af 45 L BUN/Creatinine Ratio 22.0 H Glucose 103 H Lactic Acid Calcium 9.1 Total Bilirubin 0.92 AST 22 ALT 18 Alkaline Phosphatase 60 Ammonia Troponin T High Sens 50 H Total Protein 6.3 Albumin 4.2 Globulin 2.1 L Albumin/Globulin Ratio 2.0 TSH 0.928 Urine Color Straw Urine Clarity Clear Urine pH 6.0 Ur Specific [place] 1.010 Urine Protein 30 H Urine Glucose (UA) Normal Urine Ketones Negative Urine Occult Blood 50 H Urine Nitrite Positive H Urine Bilirubin Negative Urine Urobilinogen Normal Ur Leukocyte Esterase Negative Urine RBC 0-5 SEEN Urine WBC 0-5 SEEN Ur Squamous Epith Cells 0 SEEN Urine Bacteria 2+ Urine Mucus 0 SEEN Urine Opiates Screen NEGATIVE U Buprenorphine Qual NEGATIVE Ur Oxycodone Screen NEGATIVE Urine Methadone Screen NEGATIVE Urine Fentanyl Screen NEGATIVE Ur Barbiturates Screen NEGATIVE Ur Phencyclidine Scrn NEGATIVE Ur Amphetamines Screen NEGATIVE U Benzodiazepines Scrn NEGATIVE Urine Cocaine Screen NEGATIVE U Cannabinoids Screen NEGATIVE Crossmatch See Detail 06/11/25 06/11/25 14:57 15:46 WBC RBC Hgb Hct MCV MCH MCHC RDW Std Deviation RDW Coeff of Kameron Plt Count MPV Immature Gran % (Auto) Neut % (Auto) Lymph % (Auto) [place] % (Auto) Eos % (Auto) Baso % (Auto) Absolute Neuts (auto) Absolute Lymphs (auto) Nucleated RBC % Differential Comment Platelet Estimate PT INR APTT Sodium Potassium Chloride Carbon Dioxide Anion Gap BUN Creatinine Estim Creat Clear Calc Est GFR (MDRD) Non-Af BUN/Creatinine Ratio Glucose Lactic Acid 2.5 H* Calcium Total Bilirubin AST ALT Alkaline Phosphatase Ammonia 16.0 Troponin T High Sens Total Protein Albumin Globulin Albumin/Globulin Ratio TSH Urine Color Urine Clarity Urine pH Ur Specific [place] Urine Protein Urine Glucose (UA) Urine Ketones Urine Occult Blood Urine Nitrite Urine Bilirubin Urine Urobilinogen Ur Leukocyte Esterase Urine RBC Urine WBC Ur Squamous Epith Cells Urine Bacteria Urine Mucus Urine Opiates Screen U Buprenorphine Qual Ur Oxycodone Screen Urine Methadone Screen Urine Fentanyl Screen Ur Barbiturates Screen Ur Phencyclidine Scrn Ur Amphetamines Screen U Benzodiazepines Scrn Urine Cocaine Screen U Cannabinoids Screen Crossmatch ABG Data ABG results: ABG 06/11/25 15:07 Specimen Type ALLEGRA Sample Site Not entered VBG pH 7.49 H VBG pO2 30 VBG HCO3 22 VBG Total CO2 23 VBG O2 Sat (Calc) 65 VBG Base Excess -1 POC Mix VBG pCO2 Pt Tmp 29.5 L O2 Delivery Device Not entered Radiography Diagnostic Testing: Clinical Impression(s) from Imaging Studies Brain CT 06/11/25 13:52 IMPRESSION: 1. No evidence of intracranial hemorrhage or acute ischemia. 2. Changes of chronic microvascular ischemia and volume loss. The findings and impression of the report were called directly to Dr. Emeli Dinh at 2:11 p.m. Reading Location: [id number] Head/Neck CTA 06/11/25 13:57 IMPRESSION: No significant stenosis is seen. Reading Location: [id number] Abdomen CT 06/11/25 14:49 IMPRESSION: Limited noncontrast study, degraded by motion artifact. No acute traumatic findings identified in the chest or abdomen. Large hiatal hernia, as described above. Reading Location: [id number] Chest CT 06/11/25 14:49 IMPRESSION: Limited noncontrast study, degraded by motion artifact. No acute traumatic findings identified in the chest or abdomen. Large hiatal hernia, as described above. Reading Location: [id number] Discharge Plan Triage Chief Complaint: Stroke Alert ED Provider: Emeli Dinh Dx/Rx/DC Orders Prescriptions: No Action carvedilol 6.25 MG tablet 6.25 mg PO BID lisinopril 20 MG tablet 20 mg PO DAILY acyclovir 400 MG tablet 400 mg PO BID dexamethasone 4 mg tablet 20 mg PO .COMPLEX Rx Instructions: day 1 and day 8 of chemo aspirin 81 MG tablet,chewable 81 mg PO DAILY@0800 allopurinol 300 MG tablet 300 mg PO DAILY ondansetron 4 MG tablet 8 mg PO Q8H PRN PRN (Reason: Nausea) pregabalin 75 MG capsule 75 mg PO BID lenalidomide 25 mg capsule 25 mg PO DAILY Rx Instructions: starting on january 15 beclomethasone dipropionate 80 mcg/actuation HFA aerosol breath activated 1 puff inhalation BID cephalexin 500 MG capsule 500 mg PO Q6 Qty: 30 0RF Primary Care Provider: Quique Latif Referrals: Quique Latif DO [Primary Care Provider] - Print Language: Russian
[2025-06-11] MEDS: Piperacil/Tazobactam 3.375 GM in 0.9% Normal Saline (50mL MB+) 50 ML IV (15:55)
[2025-06-11 16:01] LABS: Red Blood Cells-Urine 0-5 SEEN /hpf (0-5)
[2025-06-11 16:15] LABS: Ammonia 16.0 umol/L (11-51)
[2025-06-11] MEDS: 0.9% Normal Saline (1000mL) 1,000 ML 150 ML IV (16:15)
[2025-06-11] MEDS: Vancomycin HCl 2,000 MG in 0.9% Normal Saline (500mL Bag) 500 ML 250 MG IV (17:05)
[2025-06-11 17:25] LABS: Troponin T High Sens 2 HR 37 ng/L (<=14)
--- NOTE | 2025-06-11 18:32 | PCM.HP.STD ---
HPI - General General Date of Service: 06/11/25 Chief Complaint: Confusion HPI Narrative MACY OLMEDO, is a 75 F who presents to the emergency room department confused. Today is a 5-year-old female with a history of multiple myeloma who had received transfusion this past Wednesday. Patient was noted to be normal around 8 AM and only returned home around 1330, she is on the ground side of bed and was confused. Stroke team was called patient was sent to the emergency room. Patient had CT CTA of the head neck that showed no acute process. Patient was seen by neurology who recommend additional workup with an MRI, echo and EEG. Patient is to continue sobriety history so history is obtained through the documentation as well as to the emergency room physician. Patient was also considered to be septic and patient did receive pip-tazo and vancomycin in the emergency room. [facility] Medical History (Updated 06/11/25 @ 18:[address] Chucho Colón, DO) HTN (hypertension) Multiple myeloma Medical History unable to obtain Home Medications ?Medication ?Instructions ?Recorded ?Last Taken ?Type acyclovir 400 mg tablet 400 mg PO BID 12/27/19 Unknown History carvedilol 6.25 mg tablet 25 mg PO BID blood pressure 12/27/19 Unknown History dexamethasone 4 mg tablet 20 mg PO .COMPLEX 12/27/19 Unknown History albuterol 90 mcg/actuation aerosol 90 mcg inhalation Q6H PRN PRN 06/11/25 Unknown History inhaler wheezing amlodipine 5 mg tablet 5 mg PO DAILY PRN blood pressure 06/11/25 Unknown History cetirizine 10 mg tablet (24Hour 10 mg PO DAILY PRN allergy symptoms 06/11/25 Unknown History Allergy) cyanocobalamin (vitamin B-12) 5,000 mcg PO QWEEK 06/11/25 Unknown History 5,000 mcg capsule ergocalciferol (vitamin D2) 1,250 1,250 mcg PO QWEEK 06/11/25 Unknown History mcg (50,000 unit) capsule fluticasone furoate 50 1 inh inhalation DAILY 06/11/25 Unknown History mcg/actuation blister powder for inhalation (Arnuity Ellipta) gabapentin 300 mg capsule 300 mg PO QHS 06/11/25 Unknown History lenalidomide 10 mg capsule 10 mg PO DAILY 06/11/25 Unknown History (Revlimid) lisinopril 10 mg tablet 10 mg PO DAILY 06/11/25 Unknown History polysaccharide iron complex 150 mg 150 mg PO DAILY 06/11/25 Unknown History iron capsule (Ferrex) prochlorperazine maleate 10 mg 10 mg PO Q6H 06/11/25 Unknown History tablet (Compazine) Allergy/AdvReac Type Severity Reaction Status Date / Time naproxen (From Naprosyn) Allergy Mild Hives Verified 06/11/25 15:19 erythromycin base Allergy Hives Verified 10/19/22 12:11 lactose AdvReac Diarrhea Verified 10/19/22 12:11 Family History unable to obtain unable to obtain Surgical History unable to obtain unable to obtain Social History Smoking Status: Never smoker ROS Review of Systems ROS Unobtainable: due to encephalopathy Vital Signs Vital Signs Vital Signs: 06/11/25 13:52 06/11/25 13:52 06/11/25 13:53 Temperature Temperature Source Pulse Rate 73 Respiratory Rate 18 Blood Pressure 167/126 H 160/100 H Blood Pressure Mean 139 120 Pulse Ox 93 93 Oxygen Delivery Method Room Air Room Air 06/11/25 14:07 06/11/25 14:21 06/11/25 14:22 Temperature 36.6 C Temperature Source Axillary Pulse Rate 74 65 71 Respiratory Rate 22 H 22 H 22 H Blood Pressure 172/159 H 188/118 H 188/118 H Blood Pressure Mean 163 141 141 Pulse Ox 94 93 94 Oxygen Delivery Method Room Air Room Air Room Air 06/11/25 15:06 06/11/25 15:07 06/11/25 15:11 Temperature 36.6 C 38.3 C H Temperature Source Axillary Core Pulse Rate 74 66 Respiratory Rate 24 H 20 H Blood Pressure 160/100 H 136/103 H Blood Pressure Mean 120 114 Pulse Ox 94 96 97 Oxygen Delivery Method Room Air Room Air 06/11/25 15:16 06/11/25 15:16 06/11/25 15:47 Temperature 38.4 C H 38.6 C H Temperature Source Core Core Pulse Rate 62 Respiratory Rate 20 H Blood Pressure 167/66 H 167/66 H 149/115 H Blood Pressure Mean 92 92 127 Pulse Ox 97 91 Oxygen Delivery Method 06/11/25 16:00 06/11/25 16:15 06/11/25 16:24 Temperature 38.7 C H 38.8 C H 38.8 C H Temperature Source Core Core Core Pulse Rate 87 Respiratory Rate 22 H Blood Pressure 176/75 H 147/75 H 147/75 H Blood Pressure Mean 98 91 99 Pulse Ox 96 95 95 Oxygen Delivery Method Room Air 06/11/25 16:30 06/11/25 16:45 06/11/25 17:00 Temperature 38.8 C H 38.7 C H Temperature Source Core Core Pulse Rate 82 81 Respiratory Rate 23 H 20 H Blood Pressure 159/83 H 169/63 H 161/138 H Blood Pressure Mean 107 93 145 Pulse Ox 95 98 Oxygen Delivery Method Room Air 06/11/25 17:00 06/11/25 17:15 06/11/25 17:30 Temperature 38.7 C H 38.7 C H 38.7 C H Temperature Source Core Core Core Pulse Rate 85 62 66 Respiratory Rate 23 H 21 H 24 H Blood Pressure 161/138 H 143/64 H Blood Pressure Mean 145 87 Pulse Ox 93 97 Oxygen Delivery Method 06/11/25 17:30 06/11/25 18:00 06/11/25 18:16 Temperature 38.7 C H 38.7 C H Temperature Source Core Pulse Rate 72 72 Respiratory Rate 28 H 28 H Blood Pressure 157/69 H 148/95 H 148/95 H Blood Pressure Mean 96 112 112 Pulse Ox 93 93 Oxygen Delivery Method Weight Weight: 84.7 kg Body Mass Index (BMI) 35.2 Physical Exam Const Constitutional Narrative: Confused. Agitated. Attempted doing a POCUS exam but patient was thrashing around so was unable to safely to perform a bedside POCUS exam. HEENT HEENT Narrative: Mucous membranes dry. No icterus. Neck no lymphadenopathy Neck Narrative: No thyromegaly Resp Resp Narrative: Coarse breath sounds bilaterally Cardio regular rate, regular rhythm, S1 normal heart sound and S2 normal heart sound GI normal to inspection, nondistended, normoactive bowel sounds, soft to palpation, non-tender and non-distended Extremity normal to inspection Neuro moves all extremities Psych Psych Narrative: Agitated Results Lab / Micro Data Attestation: I reviewed the patient's lab results. 06/11/25 14:28 06/11/25 14:28 Labs: Laboratory Results - last 24 hr 06/11/25 11:26: Blood Type Cancelled, Antibody Screen Cancelled, Crossmatch See Detail 06/11/25 14:28: WBC 11.4 H, RBC 3.77 L, Hgb 12.6, Hct 37.9, MCV 100.5 H, MCH 33.4 H, MCHC 33.2, RDW Std Deviation 56.5 H, RDW Coeff of Kameron 15.2 H, Plt Count 63 L, MPV 11.3, Immature Gran % (Auto) 1.100 H, Neut % (Auto) 86.8 H, Lymph % (Auto) 2.4 L, [place] % (Auto) 9.6, Eos % (Auto) 0.0, Baso % (Auto) 0.1, Absolute Neuts (auto) 9.9 H, Absolute Lymphs (auto) 0.27 L, Nucleated RBC % 0.2, Differential Comment , Platelet Estimate SLT DEC, PT 13.4, INR 1.0, APTT 21.3 L, Sodium 136, Potassium 4.0, Chloride 101, Carbon Dioxide 18.8 L, Anion Gap 16 H, BUN 27 H, Creatinine 1.24 H, Estim Creat Clear Calc 38.71 L, Est GFR (MDRD) Non-Af 45 L, BUN/Creatinine Ratio 22.0 H, Glucose 103 H, Calcium 9.1, Total Bilirubin 0.92, AST 22, ALT 18, Alkaline Phosphatase 60, Troponin T High Sens 50 H, Total Protein 6.3, Albumin 4.2, Globulin 2.1 L, Albumin/Globulin Ratio 2.0, TSH 0.928 06/11/25 14:37: Urine Color Straw, Urine Clarity Clear, Urine pH 6.0, Ur Specific [place] 1.010, Urine Protein 30 H, Urine Glucose (UA) Normal, Urine Ketones Negative, Urine Occult Blood 50 H, Urine Nitrite Positive H, Urine Bilirubin Negative, Urine Urobilinogen Normal, Ur Leukocyte Esterase Negative, Urine RBC 0-5 SEEN, Urine WBC 0-5 SEEN, Ur Squamous Epith Cells 0 SEEN, Urine Bacteria 2+, Urine Mucus 0 SEEN, Urine Opiates Screen NEGATIVE, U Buprenorphine Qual NEGATIVE, Ur Oxycodone Screen NEGATIVE, Urine Methadone Screen NEGATIVE, Urine Fentanyl Screen NEGATIVE, Ur Barbiturates Screen NEGATIVE, Ur Phencyclidine Scrn NEGATIVE, Ur Amphetamines Screen NEGATIVE, U Benzodiazepines Scrn NEGATIVE, Urine Cocaine Screen NEGATIVE, U Cannabinoids Screen NEGATIVE 06/11/25 14:57: Lactic Acid 2.5 H* 06/11/25 15:46: Ammonia 16.0 06/11/25 16:58: Troponin T Hi Sens 2 Hr 37 H Micro: Microbiology 06/11/25 14:57 Mucosa - Nose SARS-CoV-2, Influenza & RSV (PCR) - Final ABG Data ABG results: ABG 06/11/25 15:07 Specimen Type ALLEGRA Sample Site Not entered VBG pH 7.49 H VBG pO2 30 VBG HCO3 22 VBG Total CO2 23 VBG O2 Sat (Calc) 65 VBG Base Excess -1 POC Mix VBG pCO2 Pt Tmp 29.5 L O2 Delivery Device Not entered Imaging Radiology Impression Brain CT 06/11/25 13:52 IMPRESSION: 1. No evidence of intracranial hemorrhage or acute ischemia. 2. Changes of chronic microvascular ischemia and volume loss. The findings and impression of the report were called directly to Dr. Emeli Dinh at 2:11 p.m. Reading Location: [id number] Head/Neck CTA 06/11/25 13:57 IMPRESSION: No significant stenosis is seen. Reading Location: [id number] Abdomen CT 06/11/25 14:49 IMPRESSION: Limited noncontrast study, degraded by motion artifact. No acute traumatic findings identified in the chest or abdomen. Large hiatal hernia, as described above. Reading Location: [id number] Chest CT 06/11/25 14:49 IMPRESSION: Limited noncontrast study, degraded by motion artifact. No acute traumatic findings identified in the chest or abdomen. Large hiatal hernia, as described above. Reading Location: [id number] Assessment & Plan Assessment/Plan (1) Encephalopathy: PLAN: Suspect metabolic due to the underlying cause of sepsis. Less likely due to stroke or seizure. Will potentially medications including gabapentin. Cannot rule out seizure so we will check EEG she if this is a postictal confusion that she is having. Will also check an MRI of the brain. (2) Sepsis: PLAN: qSOFA of 2 with encephalopathy and respiratory rate greater than 22. Unclear source. I do not feel the urine is infected as it only shows 0-[address] was limited due to patient movement. Cannot rule out underlying pneumonia. Will continue with pip-tazo and vancomycin Check urinary antigens for strep and Legionella. Check sputum culture. (3) Elevated troponin I level: PLAN: Likely due to demand ischemia from from sepsis Will check an echocardiogram. PLAN: Plan Multiple myeloma: Patient does have thrombocytopenia. Will continue to monitor for now. Continue with acyclovir lenalidomide. Continue with Hypertension: Continue with amlodipine and lisinopril. VTE prophylaxis with SCDs. Charges/Coding Visit Charges Inpatient E&M: 68868 Init Hosp L3
[2025-06-11 18:59] LABS: Reflex Lactate? Y
[2025-06-11 19:03] LABS: Troponin T High Sens 4 HR 40 ng/L (<=14)
--- NOTE | 2025-06-11 19:16 | ECHOD_ITS ---
Reason For Study Reason For Study: TIA/CVA Procedure This was a 2D Doppler, Color Flow transthoracic echocardiogram. The study was technically difficult. Patient unable to hold still and was combative. Exam performed portable in patient room. Left Ventricle Normal LV size. Left ventricular systolic function is normal. The left ventricular ejection fraction is 60 %. No regional wall motion abnormalities noted. Right Ventricle Normal RV size. Normal systolic function. Atria Normal left atrium. Normal right atrium. Mitral Valve Normal mitral valve. Tricuspid Valve Normal tricuspid valve. Aortic Valve Trisinus/trileaflet aortic valve. Mild focal aortic valve calcification. Mild (1+) aortic valve insufficiency. Pulmonic Valve Normal pulmonic valve. Great Vessels Normal aortic root. The pulmonary artery is normal size. Inferior vena cava collapse with respiration. Pericardium/Pleural No pericardial effusion. MMode/2D Measurements & Calculations LVIDd: 4.4 cm IVSd: 1.2 cm LVOT diam: 2.0 cm LVIDs: 3.3 cm LVPWd: 1.1 cm LVOT area: 3.2 cm2 FS: 24.7 % Ao root diam: 3.0 cm LAV(MOD-bp): 51.1 ml LVAd ap4: 31.6 cm2 LA dimension: 3.3 cm LAV(MOD-bp) Indexed: 29.1 ml/m2 LVLd ap4: 8.2 cm LAV(MOD-sp2): 49.8 ml EDV(MOD-sp4): 100.6 ml LAV(MOD-sp4): 47.8 ml EDV(sp4-el): 103.9 ml LVAs ap4: 19.7 cm2 LVLs ap4: 6.4 cm ESV(MOD-sp4): 51.9 ml ESV(sp4-el): 51.3 ml EF(MOD-sp4): 48.4 % EF(sp4-el): 50.6 % SV(MOD-sp4): 48.7 ml SV(sp4-el): 52.6 ml LA A4 area: 18.9 cm2 SI(MOD-sp4): 27.7 ml/m2 RA A4 area: 17.0 cm2 Time Measurements MV dec time: 0.26 sec Doppler Measurements & Calculations MV E max yousif: 51.5 cm/sec Lat Peak E' Yousif: 6.5 cm/sec Med Peak E' Yousif: 7.3 cm/sec MV A max yousif: 155.0 cm/sec E/E' lat: 8.0 E/E' med: 7.0 MV E/A: 0.33 MV V2 max: 216.5 cm/sec Ao V2 max: 345.0 cm/sec MV max P.8 mmHg MV dec slope: 194.3 cm/sec2 Ao max P.7 mmHg MV V2 mean: 81.4 cm/sec Ao V2 mean: 232.3 cm/sec MV mean P.8 mmHg Ao mean P.0 mmHg MV V2 VTI: 37.2 cm Ao V2 VTI: 69.8 cm AV (velocity ratio): 0.35 MVA(VTI): 2.1 cm2 JOSE(I,D): 1.1 cm2 JOSE(V,D): 1.1 cm2 AI max yousif: 568.4 cm/sec LV V1 max: 117.8 cm/sec MR max yousif: 653.5 cm/sec AI max P.3 mmHg LV V1 max P.6 mmHg MR max P.9 mmHg LV V1 mean P.5 mmHg MR mean yousif: 487.4 cm/sec AI dec slope: 361.1 cm/sec2 LV V1 mean: 89.0 cm/sec MR mean P.2 mmHg AI P1/2t: 461.1 msec LV V1 VTI: 24.5 cm MR VTI: 220.0 cm SV(LVOT): 79.4 ml PA V2 max: 153.0 cm/sec ECHO/Echo Complete Interpretation Summary Normal LV size. Left ventricular systolic function is normal. The left ventricular ejection fraction is 60 %. Mild (1+) aortic valve insufficiency. Ordering Physician: Chucho Colón Referring Physician: Emeli Dinh Performed By: Reece Landon RCS
--- NOTE | 2025-06-11 20:38 | PCM.RX.CS ---
Consult Antibiotic Management Pharmacy has been consulted to manage selected antibiotic: Vancomycin Type of Intervention Type of Consult: New start Suspected Infection Suspected Infection: Sepsis Prior Doses of Antibiotics Prior Doses of Antibiotics Received/Current Regimen: 2000 mg in ER @1705 Labs Labs: Sodium 136 mmol/L (133-145) 06/11/25 14:28 Potassium 4.0 mmol/L (3.3-5.1) 06/11/25 14:28 Chloride 101 mmol/L (98-108) 06/11/25 14:28 Carbon Dioxide 18.8 mmol/L (21.0-32.0) L 06/11/25 14:28 Anion Gap 16 (5-15) H 06/11/25 14:28 BUN 27 mg/dL (4-19) H 06/11/25 14:28 Creatinine 1.24 mg/dL (0.70-1.20) H 06/11/25 14:28 Est GFR (MDRD) Non-Af 45 (>60) L 06/11/25 14:28 BUN/Creatinine Ratio 22.0 RATIO (10-20) H 06/11/25 14:28 Glucose 103 mg/dL (70-99) H 06/11/25 14:28 Microbiology Microbiology: Microbiology 06/11/25 14:57 Mucosa - Nose SARS-CoV-2, Influenza & RSV (PCR) - Final Dosing Weight Weight used for dosin.7 kg Estimated Creatinine Clearance Estimated Creatinine Clearance: 38.7 ml/mi Goal Trough Goal Trough: 15-20 mcg/mL Pharmacy Plan for Drug Dosing Pharmacy Plan for Drug Dosing: NEW START IV VANCOMYCIN Consulting Physician: Eldon Indication: Sepsis/encephalopathy Goal Trough: 15-20 SrCr: 1.24 mg/dL CrCl: 38.7 ml/min Vancomycin Dose: 1250 mg q24h Pending Level:06/13/2025 @1630 Pharmacy Service will continue to monitor and adjust dosing as required. Follow-Up Labs Follow-Up Labs: Trough: Vancomycin Date/Time Labs Ordered Labs to be done on [date and time ordered]: 06/13/2025 @ 1630
--- NOTE | 2025-06-11 23:24 | NURSING ---
pt arrives on floor at 1930 in restraints. pt's restraints dc'd immediately upon arriving to floor as there is no order to continue them upon admission. she remains combative with care. unable to answer any questions. unable to obtain vs without pt attempting to strike staff. unable to participate in her care. dr dash notified. no new orders. i have entered the pt's room multiple times and attempted to provide care. the pt is completely uncooperative each time. she is removing her clothing, tele monitor, and attends. she dc'd one of her 2 ivs. she is tugging at her ramirez. she scratched herself in the left groin and created an open wound. i am unable to obtain an accurate bp as the pt removes the cuff when applied. if her arm is held still during cuff inflation the pt becomes more combative invalidating any results. will continue to periodically check on pt and mentation and continue to attempt to provide addition care & assessments. this rn entered the room for constant 1:1 monitoring at 2305.
[2025-06-12] VITALS (13 sets, daily range): BP systolic 134–231; BP diastolic 95–177; PULSE 67–110; RESP 16–26; TEMP 36.1–36.8; O2SAT 94–97; BMI 31.8
[2025-06-12] MEDS: Piperacil/Tazobactam 3.375 GM in 0.9% Normal Saline (50mL MB+) 50 ML IV ×4 (00:24→23:12)
[2025-06-12] MEDS: Lorazepam 2 MG/ML WCH Syringe 0.5 MG IV (02:45)
--- NOTE | 2025-06-12 03:38 | NURSING ---
this rn has remained in room with pt for 1:1 care. pt has remained restless and combative with staff. 0.5mg ativan given for agitation was ineffective. still unable to obtain accurate vs while pt kicks, claws and attempts to bite staff. unable to keep tele on pt for any length of time. pt has now pulled on her ramirez and she has developed hematuria. dr henao notified. new orders entered
[2025-06-12 05:40] LABS: Hematocrit 34.9 % (37-47); Hemoglobin 11.7 g/dL (12.0-15.0); Immature Granulocytes Count 0.050 X10^3/uL (0.0-0.0); Mean Corp Hgb Conc 33.5 g/dL (32-36); Mean Corpuscular Volume 99.1 fL (81-99); Mean Platelet Vol. 10.7 fl (6.2-12.0); NRBC Flagged by Analyzer 0.2 % (0-5); POSITIVE COUNT YES; POSITIVE DIFFERENTIAL YES; RBC Distribution Width CV 15.2 % (11.6-14.6); RBC Distribution Width SD 55.1 fl (35.1-43.9); Red Blood Count 3.52 M/mm3 (4.2-5.4); White Blood Count 8.8 K/mm3 (4.4-11.0)
[2025-06-12 05:53] LABS: Differential Indicated SCAN CRITERIA MET; Platelet Count 50 K/mm3 (150-450)
[2025-06-12 06:27] LABS: Anion Gap 15 (5-15); BUN 23 mg/dL (4-19); BUN/Creat Ratio 17.9 RATIO (10-20); Calcium,Total 8.2 mg/dL (7.6-11.0); Carbon Dioxide 15.5 mmol/L (21.0-32.0); Chloride 108 mmol/L (98-108); Estimated Creatinine Clearance 36.08 ml/min (50-250); Glucose 96 mg/dL (70-99); Potassium 3.4 mmol/L (3.3-5.1)
[2025-06-12 06:48] LABS: Cholesterol 228 mg/dL (<=200); Low Density Lipoprotein Calc. 141 mg/dL; Triglycerides 148 mg/dL; Very Low Density Lipoprotein 30 mg/dL (5-40); cholesterol:hdl ratio screen 3.95
--- NOTE | 2025-06-12 06:54 | NURSING ---
spoke with spouse, azalia to obtain mri questionnaire answers. after answering these questions, he advised this rn that anisha has had a pattern of becoming confused 8-12 hours after chemo. the confusion typically lasts 1-2 days and she often becomes aphasic during this time and does not communicate with him. he states this time her confusion seems more severe and he became concerned when she was unable to recognize him.
[2025-06-12] MEDS: Albuterol 2.5 MG/3 ML VIAL.NEB. INHALATION ×2 (09:15→14:42)
[2025-06-12] MEDS: Budesonide Respules 0.5 MG/2 ML AMPUL.NEB. INHALATION ×2 (09:15→19:59)
--- NOTE | 2025-06-12 11:15 | NEURO.CONS ---
Assessment and Plan: Neuro Assessment/Plan MACY OLMEDO is a 75 F being evaluated by Teleneurology for episode of confusion and somnolence. Suspect toxic metabolic encephalopathy. Less likely stroke or seizures. Recommend MRI brain and routine EEG. Check NH3,vitamin b12 ,TSH .Infectious work up as per primary team. Diagnosis: toxic metabolic encephalopathy I personally attended this patient and spent a total time of 55 minutes evaluating this patient including clinical assessment, review of chart, medical history imaging, and determining appropriate treatment and workup. HPI Consult Data Date of Consult: 06/12/25 HPI Narrative HPI Narrative: MACY OLMEDO, is a 75 F who presents with confusion.Asp er HPI: . She has history of multiple myeloma who had received transfusion this past Wednesday. Patient was noted to be normal around 8 AM and only returned home around 1330, she is on the ground side of bed and was confused. Stroke team was called patient was sent to the emergency room. Patient had CT CTA of the head neck that showed no acute process. Patient was seen by neurology who recommend additional workup with an MRI, echo and EEG. Patient is to continue sobriety history so history is obtained through the documentation as well as to the emergency room physician. Patient was also considered to be septic and patient did receive pip-tazo and vancomycin in the emergency room. On my evaluation,she was unbale to provide history. [facility] [place] Medical History (Updated 06/11/25 @ 18:[address] Chucho Colón, DO) HTN (hypertension) Multiple myeloma Medical History unable to obtain Home Medications ?Medication ?Instructions ?Recorded ?Last Taken ?Type acyclovir 400 mg tablet 400 mg PO BID 12/27/19 Unknown History carvedilol 6.25 mg tablet 25 mg PO BID blood pressure 12/27/19 Unknown History dexamethasone 4 mg tablet 20 mg PO .COMPLEX 12/27/19 Unknown History albuterol 90 mcg/actuation aerosol 90 mcg inhalation Q6H PRN PRN 06/11/25 Unknown History inhaler wheezing amlodipine 5 mg tablet 5 mg PO DAILY PRN blood pressure 06/11/25 Unknown History cetirizine 10 mg tablet (24Hour 10 mg PO DAILY PRN allergy symptoms 06/11/25 Unknown History Allergy) cyanocobalamin (vitamin B-12) 5,000 mcg PO QWEEK 06/11/25 Unknown History 5,000 mcg capsule ergocalciferol (vitamin D2) 1,250 1,250 mcg PO QWEEK 06/11/25 Unknown History mcg (50,000 unit) capsule fluticasone furoate 50 1 inh inhalation DAILY 06/11/25 Unknown History mcg/actuation blister powder for inhalation (Arnuity Ellipta) gabapentin 300 mg capsule 300 mg PO QHS 06/11/25 Unknown History lenalidomide 10 mg capsule 10 mg PO DAILY 06/11/25 Unknown History (Revlimid) lisinopril 10 mg tablet 10 mg PO DAILY 06/11/25 Unknown History polysaccharide iron complex 150 mg 150 mg PO DAILY 06/11/25 Unknown History iron capsule (Ferrex) prochlorperazine maleate 10 mg 10 mg PO Q6H 06/11/25 Unknown History tablet (Compazine) Allergy/AdvReac Type Severity Reaction Status Date / Time naproxen (From Naprosyn) Allergy Mild Hives Verified 06/11/25 15:19 erythromycin base Allergy Hives Verified 10/19/22 12:11 lactose AdvReac Diarrhea Verified 10/19/22 12:11 Family History unable to obtain Surgical History unable to obtain Social History Smoking Status: Never smoker Vital Signs Vital Signs Vital Signs: 06/11/25 13:52 06/11/25 13:52 06/11/25 13:53 Temperature Temperature Source Pulse Rate 73 Respiratory Rate 18 Respiratory Effort Respiratory Depth Respiratory Pattern Blood Pressure 167/126 H 160/100 H Blood Pressure Mean 139 120 Blood Pressure Source Blood Pressure Position Blood Pressure Location Pulse Ox 93 93 Oxygen Delivery Method Room Air Room Air 06/11/25 14:07 06/11/25 14:21 06/11/25 14:22 Temperature 97.8 F Temperature Source Axillary Pulse Rate 74 65 71 Respiratory Rate 22 H 22 H 22 H Respiratory Effort Respiratory Depth Respiratory Pattern Blood Pressure 172/159 H 188/118 H 188/118 H Blood Pressure Mean 163 141 141 Blood Pressure Source Blood Pressure Position Blood Pressure Location Pulse Ox 94 93 94 Oxygen Delivery Method Room Air Room Air Room Air 06/11/25 15:06 06/11/25 15:07 06/11/25 15:11 Temperature 97.8 F 101 F H Temperature Source Axillary Core Pulse Rate 74 66 Respiratory Rate 24 H 20 H Respiratory Effort Respiratory Depth Respiratory Pattern Blood Pressure 160/100 H 136/103 H Blood Pressure Mean 120 114 Blood Pressure Source Blood Pressure Position Blood Pressure Location Pulse Ox 94 96 97 Oxygen Delivery Method Room Air Room Air 06/11/25 15:16 06/11/25 15:16 06/11/25 15:47 Temperature 101.1 F H 101.5 F H Temperature Source Core Core Pulse Rate 62 Respiratory Rate 20 H Respiratory Effort Respiratory Depth Respiratory Pattern Blood Pressure 167/66 H 167/66 H 149/115 H Blood Pressure Mean 92 92 127 Blood Pressure Source Blood Pressure Position Blood Pressure Location Pulse Ox 97 91 Oxygen Delivery Method 06/11/25 16:00 06/11/25 16:15 06/11/25 16:24 Temperature 101.6 F H 101.8 F H 101.8 F H Temperature Source Core Core Core Pulse Rate 87 Respiratory Rate 22 H Respiratory Effort Respiratory Depth Respiratory Pattern Blood Pressure 176/75 H 147/75 H 147/75 H Blood Pressure Mean 98 91 99 Blood Pressure Source Blood Pressure Position Blood Pressure Location Pulse Ox 96 95 95 Oxygen Delivery Method Room Air 06/11/25 16:30 06/11/25 16:45 06/11/25 17:00 Temperature 101.8 F H 101.7 F H Temperature Source Core Core Pulse Rate 82 81 Respiratory Rate 23 H 20 H Respiratory Effort Respiratory Depth Respiratory Pattern Blood Pressure 159/83 H 169/63 H 161/138 H Blood Pressure Mean 107 93 145 Blood Pressure Source Blood Pressure Position Blood Pressure Location Pulse Ox 95 98 Oxygen Delivery Method Room Air 06/11/25 17:00 06/11/25 17:15 06/11/25 17:30 Temperature 101.7 F H 101.7 F H 101.7 F H Temperature Source Core Core Core Pulse Rate 85 62 66 Respiratory Rate 23 H 21 H 24 H Respiratory Effort Respiratory Depth Respiratory Pattern Blood Pressure 161/138 H 143/64 H Blood Pressure Mean 145 87 Blood Pressure Source Blood Pressure Position Blood Pressure Location Pulse Ox 93 97 Oxygen Delivery Method 06/11/25 17:30 06/11/25 18:00 06/11/25 18:15 Temperature 101.6 F H 101.6 F H Temperature Source Core Core Pulse Rate 72 64 Respiratory Rate 28 H 20 H Respiratory Effort Respiratory Depth Respiratory Pattern Blood Pressure 157/69 H 148/95 H 148/95 H Blood Pressure Mean 96 112 112 Blood Pressure Source Blood Pressure Position Blood Pressure Location Pulse Ox 93 97 Oxygen Delivery Method 06/11/25 18:16 06/11/25 18:30 06/11/25 19:00 Temperature 101.6 F H 101.6 F H 101 F H Temperature Source Core Core Pulse Rate 72 57 L 65 Respiratory Rate 28 H 19 H 22 H Respiratory Effort Respiratory Depth Respiratory Pattern Blood Pressure 148/95 H 154/66 H 157/115 H Blood Pressure Mean 112 90 129 Blood Pressure Source Blood Pressure Position Blood Pressure Location Pulse Ox 93 96 94 Oxygen Delivery Method Room Air 06/11/25 20:03 06/11/25 21:00 06/12/25 03:00 Temperature 97.0 F L Temperature Source Temporal Pulse Rate 67 86 Respiratory Rate 26 H 24 H Respiratory Effort Respiratory Depth Respiratory Pattern Blood Pressure 213/189 H 231/177 H Blood Pressure Mean 197 195 Blood Pressure Source Blood Pressure Position Blood Pressure Location Pulse Ox 95 96 Oxygen Delivery Method Room Air Room Air 06/12/25 04:00 06/12/25 04:00 06/12/25 09:17 Temperature 97.9 F Temperature Source Temporal Pulse Rate 67 67 Respiratory Rate 26 H 20 H Respiratory Effort Labored Accessory Muscle Use Respiratory Depth Deep Respiratory Pattern Tachypnea Normal Blood Pressure 209/95 H Blood Pressure Mean 133 Blood Pressure Source Blood Pressure Position Blood Pressure Location Pulse Ox 95 Oxygen Delivery Method Room Air Room Air 06/12/25 09:17 06/12/25 10:00 06/12/25 10:03 Temperature 97.1 F L Temperature Source Temporal Pulse Rate 86 Respiratory Rate 24 H Respiratory Effort Labored Respiratory Depth Normal Respiratory Pattern Normal Blood Pressure 177/112 H Blood Pressure Mean 133 Blood Pressure Source Monitor Blood Pressure Position Semi-Fowlers Blood Pressure Location Right Arm Pulse Ox 96 94 Oxygen Delivery Method Room Air Room Air Room Air Weight Weight: 76.4 kg Body Mass Index (BMI) 31.8 EEG Results Procedure Details EEG Procedure Details: MACY OLMEDO is a 75 year old F with a past medical history of , who presents for evaluation of Electroencephalogram on DATE at TIME Physical Exam Neuro Neuro Narrative: -? General: Laying comfortably in bed; in no acute distress. -? HENT: Normal oropharynx and mucosa. Normal external appearance of ears and nose. Exophthalmos. -? Neck: Supple, no pain or tenderness -? CV:? No peripheral edema. -? Pulmonary:? Normal respiratory effort. -? Ext: No cyanosis, edema, or deformity -? Skin: No rash. Normal palpation of skin.? -? Musculoskeletal: full range of motion; no joint tenderness. Normal digits and nails by inspection. No clubbing. -? NEURO: -? Mental Status: The patient was somnolent and did not participaed in exam. -? Language: speech is fluent? Naming, repetition, fluency, and comprehension intact. -? Cranial Nerves: , visual lord full, no facial asymmetry, facial sensation intact, hearing intact, tongue midline, no evidence of atrophy or fibrillations. As performed by the nurse. Sternocleidomastoid and trapezius were equally strong. Soft palate raises equally, no uvular deviations -? Motor: normal bulk, tone, and strength throughout. No pronator drift or satelliting. Upper and lower extremities equal bilaterally. Lab / Micro Data 06/12/25 04:48 06/12/25 04:48 Labs: Laboratory Results - last 24 hr 06/11/25 11:26: Blood Type Cancelled, Antibody Screen Cancelled, Crossmatch See Detail 06/11/25 14:28: WBC 11.4 H, RBC 3.77 L, Hgb 12.6, Hct 37.9, MCV 100.5 H, MCH 33.4 H, MCHC 33.2, RDW Std Deviation 56.5 H, RDW Coeff of Kamer[place] 15.2 H, Plt Count 63 L, MPV 11.3, Immature Gran % (Auto) 1.100 H, Neut % (Auto) 86.8 H, Lymph % (Auto) 2.4 L, [place] % (Auto) 9.6, Eos % (Auto) 0.0, Baso % (Auto) 0.1, Absolute Neuts (auto) 9.9 H, Absolute Lymphs (auto) 0.27 L, Nucleated RBC % 0.2, Differential Comment , Platelet Estimate SLT DEC, PT 13.4, INR 1.0, APTT 21.3 L, Sodium 136, Potassium 4.0, Chloride 101, Carbon Dioxide 18.8 L, Anion Gap 16 H, BUN 27 H, Creatinine 1.24 H, Estim Creat Clear Calc 38.71 L, Est GFR (MDRD) Non-Af 45 L, BUN/Creatinine Ratio 22.0 H, Glucose 103 H, Calcium 9.1, Total Bilirubin 0.92, AST 22, ALT 18, Alkaline Phosphatase 60, Troponin T High Sens 50 H, Total Protein 6.3, Albumin 4.2, Globulin 2.1 L, Albumin/Globulin Ratio 2.0, TSH 0.928 06/11/25 14:37: Urine Color Straw, Urine Clarity Clear, Urine pH 6.0, Ur Specific [place] 1.010, Urine Protein 30 H, Urine Glucose (UA) Normal, Urine Ketones Negative, Urine Occult Blood 50 H, Urine Nitrite Positive H, Urine Bilirubin Negative, Urine Urobilinogen Normal, Ur Leukocyte Esterase Negative, Urine RBC 0-5 SEEN, Urine WBC 0-5 SEEN, Ur Squamous Epith Cells 0 SEEN, Urine Bacteria 2+, Urine Mucus 0 SEEN, Urine Opiates Screen NEGATIVE, U Buprenorphine Qual NEGATIVE, Ur Oxycodone Screen NEGATIVE, Urine Methadone Screen NEGATIVE, Urine Fentanyl Screen NEGATIVE, Ur Barbiturates Screen NEGATIVE, Ur Phencyclidine Scrn NEGATIVE, Ur Amphetamines Screen NEGATIVE, U Benzodiazepines Scrn NEGATIVE, Urine Cocaine Screen NEGATIVE, U Cannabinoids Screen NEGATIVE 06/11/25 14:57: Lactic Acid 2.5 H* 06/11/25 15:46: Ammonia 16.0 06/11/25 16:58: Troponin T Hi Sens 2 Hr 37 H 06/11/25 18:10: Troponin T Hi Sens 4Hr 40 H 06/11/25 19:02: Lactic Acid 1.5 06/11/25 20:30: Lactic Acid 1.4 06/12/25 04:48: WBC 8.8, RBC 3.52 L, Hgb 11.7 L, Hct 34.9 L, MCV 99.1 H, MCH 33.2 H, MCHC 33.5, RDW Std Deviation 55.1 H, RDW Coeff of Kamer[place] 15.2 H, Plt Count 50 L*, MPV 10.7, Immature Gran % (Auto) 0.600, Neut % (Auto) 82.0 H, Lymph % (Auto) 4.2 L, [place] % (Auto) 13.1 H, Eos % (Auto) 0.0, Baso % (Auto) 0.1, Absolute Neuts (auto) 7.2, Absolute Lymphs (auto) 0.37 L, Nucleated RBC % 0.2, Platelet Estimate MKD DEC, Sodium 139, Potassium 3.4, Chloride 108, Carbon Dioxide 15.5 L, Anion Gap 15, BUN 23 H, Creatinine 1.26 H, Estim Creat Clear Calc 36.08 L, Est GFR (MDRD) Non-Af 45 L, BUN/Creatinine Ratio 17.9, Glucose 96, Calcium 8.2, Triglycerides 148, Cholesterol 228 H, LDL Cholesterol, Calc 141, VLDL Cholesterol 30, HDL Cholesterol 58, Cholesterol/HDL Ratio 3.95 Micro: Microbiology 06/11/25 14:37 Urine Catheter - [place] Legionella Antigen - Final 06/11/25 14:37 Urine Catheter - [place] Streptococcus pneumoniae Antigen (M - Final 06/11/25 14:57 Mucosa - Nose SARS-CoV-2, Influenza & RSV (PCR) - Final ABG Data ABG results: ABG 06/11/25 15:07 Specimen Type ALLEGRA Sample Site Not entered VBG pH 7.49 H VBG pO2 30 VBG HCO3 22 VBG Total CO2 23 VBG O2 Sat (Calc) 65 VBG Base Excess -1 POC Mix VBG pCO2 Pt Tmp 29.5 L O2 Delivery Device Not entered Imaging Radiology Impression Brain CT 06/11/25 13:52 IMPRESSION: 1. No evidence of intracranial hemorrhage or acute ischemia. 2. Changes of chronic microvascular ischemia and volume loss. The findings and impression of the report were called directly to Dr. Emeli Dinh at 2:11 p.m. Reading Location: [id number] Head/Neck CTA 06/11/25 13:57 IMPRESSION: No significant stenosis is seen. Reading Location: [id number] Abdomen CT 06/11/25 14:49 IMPRESSION: Limited noncontrast study, degraded by motion artifact. No acute traumatic findings identified in the chest or abdomen. Large hiatal hernia, as described above. Reading Location: [facility] Chest CT 06/11/25 14:49 IMPRESSION: Limited noncontrast study, degraded by motion artifact. No acute traumatic findings identified in the chest or abdomen. Large hiatal hernia, as described above. Reading Location: [facility] Active Medications Active Medications Active Medications: Current Medications Generic Name Dose Route Start Last Admin Trade Name Freq PRN Reason Stop Dose Admin Acetaminophen 650 mg 06/11/25 19:16 Acetaminophen 325 Mg Tablet PO Q6H PRN PRN Pain 1-10 Or Fever>100.7 Acyclovir 400 mg 06/11/25 22:00 06/12/25 11:05 Acyclovir 200 Mg Capsule PO Not Given BID PATY Albuterol Sulfate 2.5 mg 06/11/25 20:14 06/12/25 09:15 Albuterol 2.5 Mg/3 Ml Vial.Neb. INHALATION 2.5 mg Q6H PRN PRN Administration wheezing Amlodipine Besylate 5 mg 06/11/25 19:16 Amlodipine 5 Mg Tablet PO DAILY PRN blood pressure Protocol Budesonide 0.5 mg 06/11/25 20:15 06/12/25 09:15 Budesonide Respules 0.5 Mg/2 Ml Ampul.Neb. INHALATION 0.5 mg Q12H.RT PATY Administration Carvedilol 25 mg 06/11/25 22:00 06/12/25 11:05 Carvedilol 25 Mg Tablet PO Not Given BID PATY Clarify Med Order 1 each 06/12/25 08:30 Clarify Order NOTE CLARIFY PATY Cyanocobalamin 5,000 mcg 06/12/25 10:00 06/12/25 11:05 Cyanocobalamin 500 Mcg Tablet PO Not Given QWEEK PATY Dexamethasone 20 mg 06/11/25 19:16 Dexamethasone 4 Mg Tablet PO .COMPLEX PATY Ergocalciferol 1.25 mg 06/11/25 19:16 06/11/25 23:20 Ergocalciferol 1.25 Mg (50, 000 Unit) Capsule PO Not Given QWEEK PATY Hydralazine HCl 5 mg 06/11/25 19:16 Hydralazine 20 Mg/Ml Vial IV 06/12/25 19:16 Q30M PRN maintain BP parameters with HR <60 Vancomycin IV-PHARMACY TO DOSE 500 mls @ 250 mls/hr 06/11/25 19:16 1 each/ Sodium Chloride IV X1 PRN Rx to Dose Protocol Vancomycin HCl 1,250 mg/ 275 mls @ 167 mls/hr 06/12/25 17:00 Sodium Chloride IV Q24H PATY Piperacillin Sod/Tazobactam 50 mls @ 12.5 mls/hr 06/11/25 23:45 06/12/25 09:53 Sod 3.375 gm/ Sodium Chloride IV Infused Q8 PATY Infusion Sodium Chloride 250 mls @ 15 mls/hr 06/11/25 23:49 IV .[id number] PRN Saline Flush Sodium Chloride 250 mls @ 15 mls/hr 06/11/25 23:49 IV .[id number] PRN Additional IVPB Infusion Labetalol HCl 20 mg 06/11/25 13:52 Labetalol 20 Mg/4 Ml Vial IV 06/12/25 13:52 X1 PRN BLOOD PRESSURE Labetalol HCl 10 - 20 mg 06/11/25 19:16 Labetalol 20 Mg/4 Ml Vial IV 06/12/25 19:16 Q10M PRN PRN maintain BP parameters with HR >/=60 Lisinopril 10 mg 06/12/25 10:00 06/12/25 11:05 Lisinopril 10 Mg Tablet PO Not Given DAILY [facility] Protocol Loratadine 10 mg 06/11/25 19:16 Loratadine 10 Mg Tablet PO DAILY PRN allergy symptoms Non-Formulary Medication 10 mg 06/12/25 10:00 Lenalidomide [Revlimid] PO DAILY [facility] Ondansetron HCl 4 mg 06/11/25 19:16 Ondansetron 4 Mg/2 Ml Vial IV Q8H PRN PRN NAUSEA/VOMITING Polysaccharide Iron Complex 150 mg 06/12/25 10:00 06/12/25 11:05 Iron Polysaccharide Complex 150 Mg Capsule PO Not Given DAILY PATY Sodium Chloride 10 - 40 ml 06/11/25 23:49 0.9% Saline Lock 10 Ml Syringe IV UD PRN SALINE FLUSH Vancomycin Protocol 1 lab 06/13/25 15:30 Vancomycin Trough/Random Due 06/13/25 17:30 DAILY PATY NIHSS NIHSS Nursing Documentation NIHSS Nursing Documentation: NIHSS: Ischemic Stroke/TIA Start: 06/11/25 19:16 Text: For PCU Patients: NIH and Neuro Check every 4 Status: Active hours, PRN and with change in RN caregiver. Freq: [id number] Protocol: Activity Type Activity Date Activity User E-sign Co-sign Detail Recorded Client Recorded Date Recorded By Document 06/12/25 10:00 CG ...7 06/12/25 10:53 CG 06/12/25 10:00 NIH Stroke Scale [NIHSS] A score of 0 is normal or asymptomatic . Total possible score is 42. Inpatient: RN or Physician to activate a stroke alert for onset of new stroke symptoms or with NIHSS increase >/= 3 points. Following change in neurological status, NIHSS will be performed per physician order or more frequently PRN. -1a. Level of Consciousness 1 - Not alert; Arousable by minor stimuli to obey, answer & respond -1b. LOC Questions 1 - Answers ONE question correctly -1c. LOC Commands 0 - Performs BOTH tasks correctly -2. Best Gaze 0 - Normal -3. Visual 0 - No visual loss -4. Facial Palsy 0 - Normal symmetrical movements -5a. Left Arm 0 - No drift; arm holds 90 ( or 45) degrees for full 10 seconds -5b. Right Arm 0 - No drift; arm holds 90 ( or 45) degrees for full 10 seconds -6a. Left Leg 0 - No drift; leg holds 30- degree position for full 5 seconds -6b. Right Leg 0 - No drift; leg holds 30- degree position for full 5 seconds -7. Limb Ataxia 0 - Absent -8. Sensory 0 - Normal; no sensory loss -9. Best Language 0 - No aphasia; normal -10. Dysarthria 1 = Mild-to- moderate dysarthria; -11. Extinction and Inattention 0 - No abnormality -Total 3 Query Text:A score of 0 is normal or asymptomatic. Total possible score is 42 . ED: Notify Physician for NIHSS increase by > / = 3 points. Inpatient: RN or Physician to activate a stroke alert for NIHSS increase of > / = 3 points. Coma Scale [Assess] -Eye Opening To Voice -Motor Obeys Commands -Verbal Confused [Total] -Coma Scale Total 13
--- NOTE | 2025-06-12 11:31 | PN.HOSP_ITS ---
Reason for Visit Chief Complaint: Confusion Subjective Subjective Patient is a 75-year-old lady with history of multiple myeloma who presented with altered mental status Objective Data Objective Data Vital Signs: Vital Signs Temp Pulse Resp BP Pulse Ox O2 Del Method 97.1 F L 86 24 H 177/112 H 94 Room Air 06/12/25 10:03 06/12/25 10:03 06/12/25 10:03 06/12/25 10:03 06/12/25 10:03 06/12/25 10:03 Oxygen Delivery Method Room Air Weight: 76.4 kg Body Mass Index (BMI) 31.8 Intake & Output: Intake and Output for Last 24 Hours 06/10/25 06/11/25 06/12/25 23:59 23:59 23:59 Intake Total 590 / 1590 1100 / 1100 Output Total 1500 / 1500 Balance 590 / 990 -400 / -400 Lab / Micro Data 06/12/25 04:48 06/12/25 04:48 Labs: Laboratory Results - last 24 hr 06/11/25 11:26: Blood Type Cancelled, Antibody Screen Cancelled, Crossmatch See Detail 06/11/25 14:28: WBC 11.4 H, RBC 3.77 L, Hgb 12.6, Hct 37.9, MCV 100.5 H, MCH 33.4 H, MCHC 33.2, RDW Std Deviation 56.5 H, RDW Coeff of Kameron 15.2 H, Plt Count 63 L, MPV 11.3, Immature Gran % (Auto) 1.100 H, Neut % (Auto) 86.8 H, Lymph % (Auto) 2.4 L, [place] % (Auto) 9.6, Eos % (Auto) 0.0, Baso % (Auto) 0.1, Absolute Neuts (auto) 9.9 H, Absolute Lymphs (auto) 0.27 L, Nucleated RBC % 0.2, Differential Comment , Platelet Estimate SLT DEC, PT 13.4, INR 1.0, APTT 21.3 L, Sodium 136, Potassium 4.0, Chloride 101, Carbon Dioxide 18.8 L, Anion Gap 16 H, BUN 27 H, Creatinine 1.24 H, Estim Creat Clear Calc 38.71 L, Est GFR (MDRD) Non- Af 45 L, BUN/Creatinine Ratio 22.0 H, Glucose 103 H, Calcium 9.1, Total Bilirubin 0.92, AST 22, ALT 18, Alkaline Phosphatase 60, Troponin T High Sens 50 H, Total Protein 6.3, Albumin 4.2, Globulin 2.1 L, Albumin/Globulin Ratio 2.0, TSH 0.928 06/11/25 14:37: Urine Color Straw, Urine Clarity Clear, Urine pH 6.0, Ur Specific [place] 1.010, Urine Protein 30 H, Urine Glucose (UA) Normal, Urine Ketones Negative, Urine Occult Blood 50 H, Urine Nitrite Positive H, Urine Bilirubin Negative, Urine Urobilinogen Normal, Ur Leukocyte Esterase Negative, Urine RBC 0-5 SEEN, Urine WBC 0-5 SEEN, Ur Squamous Epith Cells 0 SEEN, Urine Bacteria 2+, Urine Mucus 0 SEEN, Urine Opiates Screen NEGATIVE, U Buprenorphine Qual NEGATIVE, Ur Oxycodone Screen NEGATIVE, Urine Methadone Screen NEGATIVE, Urine Fentanyl Screen NEGATIVE, Ur Barbiturates Screen NEGATIVE, Ur Phencyclidine Scrn NEGATIVE, Ur Amphetamines Screen NEGATIVE, U Benzodiazepines Scrn NEGATIVE, Urine Cocaine Screen NEGATIVE, U Cannabinoids Screen NEGATIVE 06/11/25 14:57: Lactic Acid 2.5 H* 06/11/25 15:46: Ammonia 16.0 06/11/25 16:58: Troponin T Hi Sens 2 Hr 37 H 06/11/25 18:10: Troponin T Hi Sens 4Hr 40 H 06/11/25 19:02: Lactic Acid 1.5 06/11/25 20:30: Lactic Acid 1.4 06/12/25 04:48: WBC 8.8, RBC 3.52 L, Hgb 11.7 L, Hct 34.9 L, MCV 99.1 H, MCH 33.2 H, MCHC 33.5, RDW Std Deviation 55.1 H, RDW Coeff of [place]amer[place] 15.2 H, Plt Count 50 L*, MPV 10.7, Immature Gran % (Auto) 0.600, Neut % (Auto) 82.0 H, Lymph % (Auto) 4.2 L, [place] % (Auto) 13.1 H, Eos % (Auto) 0.0, Baso % (Auto) 0.1, Absolute Neuts (auto) 7.2, Absolute Lymphs (auto) 0.37 L, Nucleated RBC % 0.2, Platelet Estimate MKD DEC, Sodium 139, Potassium 3.4, Chloride 108, Carbon Dioxide 15.5 L, Anion Gap 15, BUN 23 H, Creatinine 1.26 H, Estim Creat Clear Calc 36.08 L, Est GFR (MDRD) Non-Af 45 L, BUN/Creatinine Ratio 17.9, Glucose 96, Calcium 8.2, Triglycerides 148, Cholesterol 228 H, LDL Cholesterol, Calc 141, VLDL Cholesterol 30, HDL Cholesterol 58, Cholesterol/HDL Ratio 3.95 Micro: Microbiology 06/11/25 14:37 Urine Catheter - Reveles Legionella Antigen - Final 06/11/25 14:37 Urine Catheter - Reveles Streptococcus pneumoniae Antigen (M - Final 06/11/25 14:57 Mucosa - Nose SARS-CoV-2, Influenza & RSV (PCR) - Final ABG Data ABG results: ABG 06/11/25 15:07 Specimen Type ALLEGRA Sample Site Not entered VBG pH 7.49 H VBG pO2 30 VBG HCO3 22 VBG Total CO2 23 VBG O2 Sat (Calc) 65 VBG Base Excess -1 POC Mix VBG pCO2 Pt Tmp 29.5 L O2 Delivery Device Not entered Radiography Diagnostic Testing: Radiology Impression Brain CT 06/11/25 13:52 IMPRESSION: 1. No evidence of intracranial hemorrhage or acute ischemia. 2. Changes of chronic microvascular ischemia and volume loss. The findings and impression of the report were called directly to Dr. Emeli Dinh at 2:11 p.m. Reading Location: [facility] Head/Neck CTA 06/11/25 13:57 IMPRESSION: No significant stenosis is seen. Reading Location: [id number] Abdomen CT 06/11/25 14:49 IMPRESSION: Limited noncontrast study, degraded by motion artifact. No acute traumatic findings identified in the chest or abdomen. Large hiatal hernia, as described above. Reading Location: [id number] Chest CT 06/11/25 14:49 IMPRESSION: Limited noncontrast study, degraded by motion artifact. No acute traumatic findings identified in the chest or abdomen. Large hiatal hernia, as described above. Reading Location: [facility] Physical Exam Narrative GENERAL: cooperative, oriented to self and place HEENT: Atraumatic; normocephalic EYES; Anicteric, Normal Conjunctiva NECK; supple, normal thyroid, RESPIRATORY: Diminished to auscultation with bilateral wheezes CARDIOVASCULAR: Regular S1 S2, GI: soft, normoactive bowel sounds, : No Renal angle tenderness; EXTREMITIES: No edema, no clubbing, MUSCULOSKELETAL: no muscle wasting NEURO: Awake; no lateralizing signs. SKIN: No Rash PSYCH; Flat affect Assessment & Plan Assessment/Plan (1) Encephalopathy: PLAN: Plan Patient is a 75-year-old lady with history of multiple myeloma who presented with altered mental status 1. Acute encephalopathy Thought to be secondary to toxic encephalopathy from gabapentin as well as metabolic encephalopathy from UTI. Suspected offending medications held. Consult placed to neurology 2. Suspected sepsis ? Suspected secondary to UTI. Urinalysis demonstrated positive urine nitrites however had normal WBC count. Started on broad-spectrum antibiotic therapy cultures sent 3. Acute bronchospasm ? Per patient's who was in the room patient has history of asthma. Ordered bronchodilator treatment as well as systemic steroids 4. Multiple myeloma ? Patient to follow-up with primary oncologist for subsequent care. Patient is on lenalidomide 5. Anemia ? Secondary to multiple myeloma monitoring H&H 6. Thrombocytopenia ? Secondary to multiple myeloma monitoring with CBC with differential 7. Hypertension ? Blood pressure controlled, home medications continued with dose adjustment as needed 8. DVT prophylaxis ? SCDs only given patient low platelets Advance planning; did discuss with the patient and family () regarding advanced directives as well as CODE STATUS. Did explain the various scenarios involved ( FULL CODE, DNR CCA, DNR CCA with no intubation, and DNR CC and what each meant) patient elected to to remain full code with CPR and intubation if warranted. Order was placed. Time spent on discussion 16 minutes. Charges/Coding Multi Select Codes Visit Charges Visit Charges: 48033 [facility] L3 Hospitalists' Procedures Procedures: 40834 Advncd Care Plan 30 Min NIHSS NIHSS Nursing Documentation NIHSS Nursing Documentation: NIHSS: Ischemic Stroke/TIA Start: 06/11/25 19:16 Text: For PCU Patients: NIH and Neuro Check every 4 Status: Active hours, PRN and with change in RN caregiver. Freq: [id number] Protocol: Activity Type Activity Date Activity User E-sign Co-sign Detail Recorded Client Recorded Date Recorded By Document 06/12/25 10:00 CG ...7 06/12/25 10:53 CG 06/12/25 10:00 NIH Stroke Scale [NIHSS] A score of 0 is normal or asymptomatic . Total possible score is 42. Inpatient: RN or Physician to activate a stroke alert for onset of new stroke symptoms or with NIHSS increase >/= 3 points. Following change in neurological status, NIHSS will be performed per physician order or more frequently PRN. -1a. Level of Consciousness 1 - Not alert; Arousable by minor stimuli to obey, answer & respond -1b. LOC Questions 1 - Answers ONE question correctly -1c. LOC Commands 0 - Performs BOTH tasks correctly -2. Best Gaze 0 - Normal -3. Visual 0 - No visual loss -4. Facial Palsy 0 - Normal symmetrical movements -5a. Left Arm 0 - No drift; arm holds 90 ( or 45) degrees for full 10 seconds -5b. Right Arm 0 - No drift; arm holds 90 ( or 45) degrees for full 10 seconds -6a. Left Leg 0 - No drift; leg holds 30- degree position for full 5 seconds -6b. Right Leg 0 - No drift; leg holds 30- degree position for full 5 seconds -7. Limb Ataxia 0 - Absent -8. Sensory 0 - Normal; no sensory loss -9. Best Language 0 - No aphasia; normal -10. Dysarthria 1 = Mild-to- moderate dysarthria; -11. Extinction and Inattention 0 - No abnormality -Total 3 Query Text:A score of 0 is normal or asymptomatic. Total possible score is 42 . ED: Notify Physician for NIHSS increase by > / = 3 points. Inpatient: RN or Physician to activate a stroke alert for NIHSS increase of > / = 3 points. Coma Scale [Assess] -Eye Opening To Voice -Motor Obeys Commands -Verbal Confused [Total] -Coma Scale Total 13
--- NOTE | 2025-06-12 12:01 | CASEMGMT ---
IRVIN HAMMONDS Assessment: Face to Face with pt for initial transition planning/care coordination assessment. IRVIN HAMMONDS introduced self and role at [facility], pt voices understanding and consents to assessment. Pt is A&O x3 and answers all questions appropriately at this time. Care providers, pharmacy, and demographics verified/updated. IRVIN HAMMONDS called to verify some information that Pt was not able to provide. Admitting Dx: Encephalopathy PCP: [facility] Specialists: Pt denies Preferred Pharmacy: [facility] Insurance: [employer] [facility] Prescription Benefit: yes LNOK: , Andre Living Arrangements: Pt lives with in a 1 level home with no steps to enter in ADLs: Pt mostly I with ADLs, needs some assistance with IADLs. Transportation: Pt drives self and denies concerns with transportation. DME: Denies. Pt not currently using O2 at home, IRVIN HAMMONDS provided list of DME providers and Pt chose [facility] as DME provider of choice if needed at time of DC. HHC/SNF: Denies Hx of. Pt states no concerns with going home at time of dc. Pt states no further concerns/needs. CM to follow. Advised pt to ask CM if any further question/concerns/needs arise, voices understanding. Pt Goal: TBD Plan: Follow for O2 needs. Follow therapy for recommendations. states he is also on chemo and having a harder time helping her at home. needs to know if Pt is able to get herself up and walk to the bathroom, if she can he would like to take her home. if not, will need to look at SNF. Curly BRYAN CM
--- NOTE | 2025-06-12 12:40 | RAD_ITS ---
PROCEDURE: CHEST 1 VIEW (PORTABLE) 06/12/2025 REASON FOR EXAM: SOB, DYSPNEA TECHNIQUE: Frontal view of the chest. COMPARISON: Prior chest radiograph dated October 19, 2022. FINDINGS: Hardware: EKG electrodes are seen. Heart: Heart size upper limits of normal. Lungs: Lungs are clear. Bones: Healed right rib fractures. Other: Large hiatal hernia. RAD/Chest 1 View (Portable) IMPRESSION: Large hiatal hernia. No acute infiltrate is seen. Healed right rib fractures. Reading Location: [id number]
[2025-06-12 12:44] LABS: Hematocrit 36.1 % (37-47); Hemoglobin 12.1 g/dL (12.0-15.0); Immature Granulocytes Count 0.050 X10^3/uL (0.0-0.0); Mean Corp Hgb Conc 33.5 g/dL (32-36); Mean Corpuscular Volume 100.6 fL (81-99); Mean Platelet Vol. 11.9 fl (6.2-12.0); NRBC Flagged by Analyzer 0 % (0-5); POSITIVE COUNT YES; POSITIVE DIFFERENTIAL YES; RBC Distribution Width CV 15.3 % (11.6-14.6); RBC Distribution Width SD 56.8 fl (35.1-43.9); Red Blood Count 3.59 M/mm3 (4.2-5.4); White Blood Count 8.1 K/mm3 (4.4-11.0)
[2025-06-12 12:57] LABS: Platelet Count 46 K/mm3 (150-450)
[2025-06-12 12:58] LABS: Anion Gap 16 (5-15); BUN 22 mg/dL (4-19); BUN/Creat Ratio 18.1 RATIO (10-20); Calcium,Total 8.2 mg/dL (7.6-11.0); Carbon Dioxide 13.1 mmol/L (21.0-32.0); Chloride 108 mmol/L (98-108); Estimated Creatinine Clearance 37.26 ml/min (50-250); Glucose 92 mg/dL (70-99); Potassium 3.4 mmol/L (3.3-5.1)
[2025-06-12] MEDS: 0.9% Saline Lock 10 ML Syringe IV ×2 (14:50→23:24)
[2025-06-12] MEDS: CLARIFY ORDER 1 EACH NOTE (17:01)
[2025-06-12] MEDS: Vancomycin HCl 1,250 MG in 0.9% Normal Saline (250mL Bag) 250 ML 167 MG IV (20:24)
[2025-06-13] VITALS (12 sets, daily range): BP systolic 117–146; BP diastolic 68–101; PULSE 78–94; RESP 18–22; TEMP 36.3–37.1; O2SAT 92–94; BMI 31.8
[2025-06-13 05:37] LABS: Hematocrit 34.2 % (37-47); Hemoglobin 11.5 g/dL (12.0-15.0); Immature Granulocytes Count 0.080 X10^3/uL (0.0-0.0); Mean Corp Hgb Conc 33.6 g/dL (32-36); Mean Corpuscular Volume 99.7 fL (81-99); Mean Platelet Vol. 11.5 fl (6.2-12.0); NRBC Flagged by Analyzer 0 % (0-5); POSITIVE COUNT YES; POSITIVE DIFFERENTIAL YES; RBC Distribution Width CV 15.5 % (11.6-14.6); RBC Distribution Width SD 57.0 fl (35.1-43.9); Red Blood Count 3.43 M/mm3 (4.2-5.4); White Blood Count 10.1 K/mm3 (4.4-11.0)
[2025-06-13 05:41] LABS: Platelet Count 46 K/mm3 (150-450)
[2025-06-13] MEDS: Piperacil/Tazobactam 3.375 GM in 0.9% Normal Saline (50mL MB+) 50 ML IV ×3 (05:44→21:50)
[2025-06-13 06:10] LABS: Anion Gap 15 (5-15); BUN 25 mg/dL (4-19); BUN/Creat Ratio 18.6 RATIO (10-20); Calcium,Total 7.7 mg/dL (7.6-11.0); Carbon Dioxide 14.9 mmol/L (21.0-32.0); Chloride 109 mmol/L (98-108); Estimated Creatinine Clearance 33.67 ml/min (50-250); Glucose 157 mg/dL (70-99); Magnesium 2.3 mg/dL (1.5-2.2); Potassium 3.3 mmol/L (3.3-5.1)
[2025-06-13] MEDS: Budesonide Respules 0.5 MG/2 ML AMPUL.NEB. INHALATION ×2 (06:45→19:08)
--- NOTE | 2025-06-13 09:00 | MRI_ITS ---
PROCEDURE: MR BRAIN WITHOUT CONTRAST 06/13/2025 REASON FOR EXAM: CONFUSION TECHNIQUE: Multiplanar and multisequential MRI of the brain was performed without contrast. COMPARISON: CT head/angiography 06/11/2025. FINDINGS: There is a questionable tiny focus of mild diffusion restriction in the superomedial right cerebellar hemisphere, which may be a tiny focus of acute-subacute infarct. Otherwise, no regions of abnormal restricted diffusion to indicate recent infarct are present elsewhere within the brain. Moderate generalized brain parenchymal volume loss, and chronic small-vessel ischemic-gliotic changes throughout the supratentorial white matter. Multiple scattered tiny foci of chronic lacunar infarct in the best radiata, and bilateral cerebellar hemispheres. Nonspecific partial empty sella. Bilateral basal ganglia prominent benign perivascular spaces noted. No acute intracranial hemorrhage, extra-axial collection, mass effect, or other acute abnormality. Nonspecific small focus of remote microhemorrhage in the left parietal lobe. Partially calcified extra-axial dural-based mass measuring 13 mm at the anterolateral left frontal convexity, most likely a meningioma. No substantial mass-effect or parenchymal edema of the subjacent left middle-inferior frontal gyri. No additional intracranial mass lesion is seen. Major intracranial vascular flow voids appear preserved. Mild peripheral mucosal thickening throughout the paranasal sinuses. Nonspecific partial left mastoid effusion. Absent new [place] ocular lenses. MRI/Brain without Contrast IMPRESSION: 1. Questionable tiny focus of acute-subacute lacunar infarct in the superomedia l right cerebellar hemisphere. Otherwise, no areas of recent infarct are present. 2. Moderate generalized volume loss and chronic small-vessel ischemic changes, with several tiny foci of old lacunar infarct in the best radiata and bilateral cerebellar hemispheres. 3. Small 13 mm presumed meningioma at the left frontal convexity. Reading Location: [id number]
--- NOTE | 2025-06-13 09:00 | PCM.PN.HOSP ---
Reason for Visit Chief Complaint: Confusion Subjective Subjective Patient seen appears to be back to her baseline. Scheduled to undergo MRI of the brain. Urine cultures sent on admission results still pending. Objective Data Objective Data Vital Signs: Vital Signs Temp Pulse Resp BP Pulse Ox O2 Del Method O2 Flow Rate 97.9 F 78 22 H 137/101 H 94 Nasal Cannula 2 06/13/25 08:35 06/13/25 08:35 06/13/25 08:35 06/13/25 08:35 06/13/25 08:35 06/13/25 08:35 06/13/25 08:35 Oxygen Flow Rate (L/min) 2 Oxygen Delivery Method Nasal Cannula Weight: 76.4 kg Body Mass Index (BMI) 31.8 Intake & Output: Intake and Output for Last 24 Hours 06/11/25 06/12/25 06/13/25 23:59 23:59 23:59 Intake Total 590 / 1590 1425 / 1425 50 / 50 Output Total 2025 / 2225 350 / 350 Balance 590 / 990 -600 / -800 -300 / -300 Lab / Micro Data 06/13/25 04:59 06/13/25 04:59 Labs: Laboratory Results - last 24 hr 06/12/25 12:30: WBC 8.1, RBC 3.59 L, Hgb 12.1, Hct 36.1 L, MCV 100.6 H, MCH 33.7 H, MCHC 33.5, RDW Std Deviation 56.8 H, RDW Coeff of Kameron 15.3 H, Plt Count 46 L*, MPV 11.9, Immature Gran % (Auto) 0.600, Neut % (Auto) 83.2 H, Lymph % (Auto) 5.1 L, [place] % (Auto) 11.0 H, Eos % (Auto) 0.0, Baso % (Auto) 0.1, Absolute Neuts (auto) 6.7, Absolute Lymphs (auto) 0.41 L, Nucleated RBC % 0, Platelet Estimate MKD DEC, Sodium 137, Potassium 3.4, Chloride 108, Carbon Dioxide 13.1 L, Anion Gap 16 H, BUN 22 H, Creatinine 1.22 H, Estim Creat Clear Calc 37.26 L, Est GFR (MDRD) Non-Af 46 L, BUN/Creatinine Ratio 18.1, Glucose 92, Calcium 8.2 06/13/25 04:59: WBC 10.1, RBC 3.43 L, Hgb 11.5 L, Hct 34.2 L, MCV 99.7 H, MCH 33.5 H, MCHC 33.6, RDW Std Deviation 57.0 H, RDW Coeff of [place] 15.5 H, Plt Count 46 L*, MPV 11.5, Immature Gran % (Auto) 0.800, Neut % (Auto) 94.1 H, Lymph % (Auto) 2.1 L, [place] % (Auto) 2.9, Eos % (Auto) 0.0, Baso % (Auto) 0.1, Absolute Neuts (auto) 9.5 H, Absolute Lymphs (auto) 0.21 L, Nucleated RBC % 0, Sodium 139, Potassium 3.3, Chloride 109 H, Carbon Dioxide 14.9 L, Anion Gap 15, BUN 25 H, Creatinine 1.35 H, Estim Creat Clear Calc 33.67 L, Est GFR (MDRD) Non-Af 41 L, BUN/Creatinine Ratio 18.6, Glucose 157 H, Calcium 7.7, Phosphorus 2.9, Magnesium 2.3 H Micro: Microbiology 06/11/25 14:37 Urine Catheter - Reveles Legionella Antigen - Final 06/11/25 14:37 Urine Catheter - Reveles Streptococcus pneumoniae Antigen (M - Final 06/11/25 14:57 Mucosa - Nose SARS-CoV-2, Influenza & RSV (PCR) - Final Radiography Diagnostic Testing: Radiology Impression Echocardiogram 06/11/25 19:16 Interpretation Summary Normal LV size. Left ventricular systolic function is normal. The left ventricular ejection fraction is 60 %. Mild (1+) aortic valve insufficiency. Ordering Physician: Chucho Colón Referring Physician: Emeli Dinh Performed By: Reece Landon RCS Chest X-Ray 06/12/25 12:40 IMPRESSION: Large hiatal hernia. No acute infiltrate is seen. Healed right rib fractures. Reading Location: [id number] Physical Exam Narrative GENERAL: cooperative, oriented to self and place HEENT: Atraumatic; normocephalic EYES; Anicteric, Normal Conjunctiva NECK; supple, normal thyroid, RESPIRATORY: Diminished to auscultation with bilateral wheezes CARDIOVASCULAR: Regular S1 S2, GI: soft, normoactive bowel sounds, : No Renal angle tenderness; EXTREMITIES: No edema, no clubbing, MUSCULOSKELETAL: no muscle wasting NEURO: Awake; no lateralizing signs. SKIN: No Rash PSYCH; Flat affect Assessment & Plan Assessment/Plan (1) Encephalopathy: PLAN: Plan Patient is a 75-year-old lady with history of multiple myeloma who presented with altered mental status 1. Acute encephalopathy Thought to be secondary to toxic encephalopathy from gabapentin as well as metabolic encephalopathy from UTI. Suspected offending medications held. Consult placed to neurology ? 06/13/2025; patient appears to be back to her baseline scheduled to undergo MRI of the brain. 2. Suspected sepsis ? Suspected secondary to UTI. Urinalysis demonstrated positive urine nitrites however had normal WBC count. Started on broad-spectrum antibiotic therapy cultures sent ? Patient remains on broad-spectrum antibiotic therapy pending culture results 3. Acute bronchospasm ? Per patient's who was in the room patient has history of asthma. Ordered bronchodilator treatment as well as systemic steroids 4. Multiple myeloma ? Patient to follow-up with primary oncologist for subsequent care. Patient is on lenalidomide 5. Anemia ? Secondary to multiple myeloma monitoring H&H 6. Thrombocytopenia ? Secondary to multiple myeloma monitoring with CBC with differential 7. Hypertension ? Blood pressure controlled, home medications continued with dose adjustment as needed 8. DVT prophylaxis ? SCDs only given patient low platelets Time spent in the patient's overall evaluation,decision-making process, review of diagnostic data, adjustment of management, discussion with other providers, nursing nursing and ancillary staff involved in patient's care documentation, 35 Minutes Charges/Coding Visit Charges Inpatient E&M: 14798 Subs Hosp L2 NIHSS NIHSS Nursing Documentation NIHSS Nursing Documentation: NIHSS: Ischemic Stroke/TIA Start: 06/11/25 19:16 Text: For PCU Patients: NIH and Neuro Check every 4 Status: Complete hours, PRN and with change in RN caregiver. Freq: [id number] Protocol: Activity Type Activity Date Activity User E-sign Co-sign Detail Recorded Client Recorded Date Recorded By Document 06/12/25 10:00 CG .09.01.7 06/12/25 10:53 CG 06/12/25 10:00 NIH Stroke Scale [NIHSS] A score of 0 is normal or asymptomatic . Total possible score is 42. Inpatient: RN or Physician to activate a stroke alert for onset of new stroke symptoms or with NIHSS increase >/= 3 points. Following change in neurological status, NIHSS will be performed per physician order or more frequently PRN. -1a. Level of Consciousness 1 - Not alert; Arousable by minor stimuli to obey, answer & respond -1b. LOC Questions 1 - Answers ONE question correctly -1c. LOC Commands 0 - Performs BOTH tasks correctly -2. Best Gaze 0 - Normal -3. Visual 0 - No visual loss -4. Facial Palsy 0 - Normal symmetrical movements -5a. Left Arm 0 - No drift; arm holds 90 ( or 45) degrees for full 10 seconds -5b. Right Arm 0 - No drift; arm holds 90 ( or 45) degrees for full 10 seconds -6a. Left Leg 0 - No drift; leg holds 30- degree position for full 5 seconds -6b. Right Leg 0 - No drift; leg holds 30- degree position for full 5 seconds -7. Limb Ataxia 0 - Absent -8. Sensory 0 - Normal; no sensory loss -9. Best Language 0 - No aphasia; normal -10. Dysarthria 1 = Mild-to- moderate dysarthria; -11. Extinction and Inattention 0 - No abnormality -Total 3 Query Text:A score of 0 is normal or asymptomatic. Total possible score is 42 . ED: Notify Physician for NIHSS increase by > / = 3 points. Inpatient: RN or Physician to activate a stroke alert for NIHSS increase of > / = 3 points. Coma Scale [Assess] -Eye Opening To Voice -Motor Obeys Commands -Verbal Confused [Total] -Coma Scale Total 13
[2025-06-13] MEDS: 0.9% Saline Lock 10 ML Syringe IV (13:28)
--- NOTE | 2025-06-13 14:46 | CASEMGMT ---
Discharge Planning A list of?SNF providers including quality and resource use data and consistent with the patient's preferred geographic region, medical needs, and insurance network was created in [employer] Guide.? This list was provided to the SW. Ivone Meredith Discharge Planning Asst.
--- NOTE | 2025-06-13 15:02 | CASEMGMT ---
Discharge Planning A list of?HH providers including quality and resource use data and consistent with the patient's preferred geographic region, medical needs, and insurance network was created in [employer] Guide.? This list was provided to the SW. Ivone Meredith Discharge Planning Asst.
--- NOTE | 2025-06-13 15:26 | CASEMGMT ---
Social Work SW met with pt to discuss discharge plan. Pt states she feels she did well with therapy and does not need SNF stay at this time. Pt is agreeable to home health. SW phoned pt's spouse who was with pt during therapy session. Pt states that he feels pt was close to back to her baseline. stating concerns that pt is sedentary at home and refuses to exercise. Spouse requesting that pt receive outpt PT at [facility] in hopes that after therapy is complete, pt will continue to attend [facility] for general wellbeing. SW will speak with physician about obtaining oupt PT orders. SW met with pt and she is agreeable to outpt therapy at [facility]. KWAN Balderas
[2025-06-13 16:28] LABS: Vancomycin, Trough Level 18.1 ug/mL (5.0-15.0)
--- NOTE | 2025-06-13 18:20 | PHA.PHARE_ITS ---
Consult Antibiotic Management Pharmacy has been consulted to manage selected antibiotic: Vancomycin Type of Intervention Type of Consult: Follow-up Labs Labs: Sodium 139 mmol/L (133-145) 06/13/25 04:59 Potassium 3.3 mmol/L (3.3-5.1) 06/13/25 04:59 Chloride 109 mmol/L (98-108) H 06/13/25 04:59 Carbon Dioxide 14.9 mmol/L (21.0-32.0) L 06/13/25 04:59 Anion Gap 15 (5-15) 06/13/25 04:59 BUN 25 mg/dL (4-19) H 06/13/25 04:59 Creatinine 1.35 mg/dL (0.70-1.20) H 06/13/25 04:59 Est GFR (MDRD) Non-Af 41 (>60) L 06/13/25 04:59 BUN/Creatinine Ratio 18.6 RATIO (10-20) 06/13/25 04:59 Glucose 157 mg/dL (70-99) H 06/13/25 04:59 Vancomycin Trough 18.1 ug/mL (5.0-15.0) H 06/13/25 15:48 Microbiology Microbiology: Microbiology 06/11/25 15:19 Blood Culture (Wb) - Right Forearm Blood Culture - Preliminar y No growth in 48 hours. 06/11/25 14:57 Blood Culture (Wb) - Anticubital Right Blood Culture - Preliminary No growth in 48 hours. 06/11/25 14:37 Urine Catheter - Reveles Legionella Antigen - Final 06/11/25 14:37 Urine Catheter - Reveles Streptococcus pneumoniae Antigen (M - Final 06/11/25 14:57 Mucosa - Nose SARS-CoV-2, Influenza & RSV (PCR) - Final Goal Trough Goal Trough: 15-20 mcg/mL Pharmacy Plan for Drug Dosing Pharmacy Plan for Drug Dosing: DAILY ASSESSMENT Current Vancomycin Dose: 1250mg IV Q24h Number of Doses Received: 2 (initial + 1 scheduled dose) Current Renal Function: SCr 1.35/ CrCl 33mL/min Renal Function Trend: slight increase in SCr but overall stable Lab/Micro: BCx shows NGTD and UCx pending Any Change in Vanc Plan: Trough drawn was only ~19.5hrs from last dose (last dose given >3hrs late). Due to increase in SCr, am hesitant to increase the dose/frequency at this time. Will continue the current dose and recheck a trough in 2 doses to assess dosing at that time. Pending Level: 06/15/25 @4062 Pharmacy Service will continue to monitor and adjust dosing as required.
[2025-06-13] MEDS: Vancomycin HCl 1,250 MG in 0.9% Normal Saline (250mL Bag) 250 ML 167 MG IV (18:41)
[2025-06-14] VITALS (13 sets, daily range): BP systolic 128–170; BP diastolic 75–117; PULSE 67–92; RESP 16–28; TEMP 36.2–36.7; O2SAT 90–97; BMI 31.8
[2025-06-14] MEDS: guaiFENesin 10 ML UDC (200MG/10ML) PO ×2 (05:14→21:55)
[2025-06-14] MEDS: Piperacil/Tazobactam 3.375 GM in 0.9% Normal Saline (50mL MB+) 50 ML IV (05:18)
[2025-06-14 06:26] LABS: Hematocrit 34.3 % (37-47); Hemoglobin 11.6 g/dL (12.0-15.0); Immature Granulocytes Count 0.080 X10^3/uL (0.0-0.0); Mean Corp Hgb Conc 33.8 g/dL (32-36); Mean Corpuscular Volume 100.3 fL (81-99); Mean Platelet Vol. 12.3 fl (6.2-12.0); NRBC Flagged by Analyzer 0 % (0-5); POSITIVE COUNT YES; POSITIVE DIFFERENTIAL YES; Platelet Count 57 K/mm3 (150-450); RBC Distribution Width CV 15.8 % (11.6-14.6); RBC Distribution Width SD 58.1 fl (35.1-43.9); Red Blood Count 3.42 M/mm3 (4.2-5.4); White Blood Count 16.2 K/mm3 (4.4-11.0)
[2025-06-14 07:01] LABS: Anion Gap 16 (5-15); BUN 37 mg/dL (4-19); BUN/Creat Ratio 21.9 RATIO (10-20); Calcium,Total 7.7 mg/dL (7.6-11.0); Carbon Dioxide 15.5 mmol/L (21.0-32.0); Chloride 111 mmol/L (98-108); Estimated Creatinine Clearance 26.58 ml/min (50-250); Glucose 152 mg/dL (70-99); Potassium 3.5 mmol/L (3.3-5.1)
[2025-06-14] MEDS: Budesonide Respules 0.5 MG/2 ML AMPUL.NEB. INHALATION ×2 (07:43→19:15)
--- NOTE | 2025-06-14 09:51 | RAD_ITS ---
PROCEDURE: CHEST 1 VIEW (PORTABLE) 06/14/2025 REASON FOR EXAM: TACHYPNEA AND WOB TECHNIQUE: Frontal view of the chest. COMPARISON: June 11, 2025, June 12, 2025 FINDINGS: Hardware: EKG leads Heart: Enlarged. Large hernia is seen containing much of the stomach in the lower thorax. Lungs: Compressive subsegmental atelectasis, [id number]-right. Otherwise, the lungs are clear. Bones: Healing posterolateral right rib fracture unchanged at approximately the 6th rib. RAD/Chest 1 View (Portable) IMPRESSION: 1. Subsegmental atelectasis left lung base. Otherwise no change. Reading Location: [id number]
--- NOTE | 2025-06-14 09:52 | PN.HOSP_ITS ---
Reason for Visit Chief Complaint: Confusion Subjective Subjective Breathing was found to be more labored this a.m. Was placed on supplemental oxygen chest x-ray and ABG ordered. MRI obtained the day prior did show Questionable tiny focus of acute-subacute lacunar infarct in the superomedial right cerebellar hemisphere. Otherwise, no areas of recent infarct are present. Objective Data Objective Data Vital Signs: Vital Signs Temp Pulse Resp BP Pulse Ox O2 Del Method O2 Flow Rate 98.0 F 85 24 H 159/94 H 94 Nasal Cannula 2 06/14/25 08:29 06/14/25 08:29 06/14/25 09:11 06/14/25 09:11 06/14/25 09:11 06/14/25 09:11 06/14/25 09:11 Oxygen Flow Rate (L/min) 2 Oxygen Delivery Method Nasal Cannula Weight: 76.4 kg Body Mass Index (BMI) 31.8 Intake & Output: Intake and Output for Last 24 Hours 06/12/25 06/13/25 06/14/25 23:59 23:59 23:59 Intake Total 1425 / 1425 965.00 / 965.00 50 / 50 Output Total 2025 / 2225 850 / 850 150 / 150 Balance -600 / -800 115.00 / 115.00 -100 / -100 Lab / Micro Data 06/14/25 05:02 06/14/25 05:02 Labs: Laboratory Results - last 24 hr 06/13/25 15:48: Vancomycin Trough 18.1 H 06/14/25 05:02: WBC 16.2 H, RBC 3.42 L, Hgb 11.6 L, Hct 34.3 L, MCV 100.3 H, MCH 33.9 H, MCHC 33.8, RDW Std Deviation 58.1 H, RDW Coeff of Kameron 15.8 H, Plt Count 57 L, MPV 12.3 H, Immature Gran % (Auto) 0.500, Neut % (Auto) 94.4 H, Lymph % (Auto) 1.3 L, [place] % (Auto) 3.7, Eos % (Auto) 0.0, Baso % (Auto) 0.1, Absolute Neuts (auto) 15.3 H, Absolute Lymphs (auto) 0.21 L, Nucleated RBC % 0, Sodium 142, Potassium 3.5, Chloride 111 H, Carbon Dioxide 15.5 L, Anion Gap 16 H, BUN 37 H, Creatinine 1.71 H, Estim Creat Clear Calc 26.58 L, Est GFR (MDRD) Non-Af 31 L, BUN/Creatinine Ratio 21.9 H, Glucose 152 H, Calcium 7.7 Micro: Microbiology 06/12/25 15:25 Urine, Clean Catch Urine Culture - Final Culture exhibits no growth. 06/11/25 15:19 Blood Culture (Wb) - Right Forearm Blood Culture - Preliminary No growth in 48 hours. 06/11/25 14:57 Blood Culture (Wb) - Anticubital Right Blood Culture - Preliminary No growth in 48 hours. 06/11/25 14:37 Urine Catheter - Reveles Legionella Antigen - Final 06/11/25 14:37 Urine Catheter - Reveles Streptococcus pneumoniae Antigen (M - Final 06/11/25 14:57 Mucosa - Nose SARS-CoV-2, Influenza & RSV (PCR) - Final Radiography Diagnostic Testing: Radiology Impression Brain MRI 06/13/25 09:00 IMPRESSION: 1. Questionable tiny focus of acute-subacute lacunar infarct in the superomedial right cerebellar hemisphere. Otherwise, no areas of recent infarct are present. 2. Moderate generalized volume loss and chronic small-vessel ischemic changes, with several tiny foci of old lacunar infarct in the best radiata and bilateral cerebellar hemispheres. 3. Small 13 mm presumed meningioma at the left frontal convexity. Reading Location: [facility] Physical Exam Narrative GENERAL: cooperative, appears slightly dyspneic at rest HEENT: Atraumatic; normocephalic EYES; Anicteric, Normal Conjunctiva NECK; supple, normal thyroid, RESPIRATORY: Diminished to auscultation with bilateral wheezes CARDIOVASCULAR: Regular S1 S2, GI: soft, normoactive bowel sounds, : No Renal angle tenderness; EXTREMITIES: No edema, no clubbing, MUSCULOSKELETAL: no muscle wasting NEURO: Awake; no lateralizing signs. SKIN: No Rash PSYCH; Flat affect Assessment & Plan Assessment/Plan (1) Encephalopathy: PLAN: Plan Patient is a 75-year-old lady with history of multiple myeloma who presented with altered mental status 1. Acute encephalopathy Thought to be secondary to toxic encephalopathy from gabapentin as well as metabolic encephalopathy from UTI. Suspected offending medications held. Consult placed to neurology ? 06/13/2025; patient appears to be back to her baseline scheduled to undergo MRI of the brain. ? 06/14/2025 MRI did show questionable tiny focus of acute-subacute lacunar infarct in the superomedial right cerebellar hemisphere. Otherwise, no areas of recent infarct are present.. Location of patient questionable infarct not consistent with her presentation 2. Suspected sepsis ? Suspected secondary to UTI. Urinalysis demonstrated positive urine nitrites however had normal WBC count. Started on broad-spectrum antibiotic therapy cultures sent ? Patient remains on broad-spectrum antibiotic therapy pending culture results ? 06/14/2025; discontinued antibiotic therapy since patient cultures have all come back negative most show patient kidney function has worsened 3. Acute bronchospasm ? Per patient's who was in the room patient has history of asthma. Ordered bronchodilator treatment as well as systemic steroids ? 06/14/2025; patient was found to be more dyspneic this a.m. ordered chest x-ray and ABG 4. Multiple myeloma ? Patient to follow-up with primary oncologist for subsequent care. Patient is on lenalidomide 5. Anemia ? Secondary to multiple myeloma monitoring H&H 6. Thrombocytopenia ? Secondary to multiple myeloma monitoring with CBC with differential 7. Hypertension ? Blood pressure controlled, home medications continued with dose adjustment as needed 8. DVT prophylaxis ? SCDs only given patient low platelets 9. Acute on chronic kidney disease stage IIIa ? Patient creatinine on admission was 1.24 up to 1.71 reviewed meds and discontinued potential nephrotoxic medication.. Patient was on both the paroxetine/tazobactam and vancomycin discontinued given the fact the patient cultures have remained negative to date Time spent in the patient's overall evaluation,decision-making process, review of diagnostic data, adjustment of management, discussion with other providers, nursing nursing and ancillary staff involved in patient's care documentation, 50 Minutes Charges/Coding Visit Charges Inpatient E&M: 38380 Subs Hosp L3 NIHSS NIHSS Nursing Documentation NIHSS Nursing Documentation: NIHSS: Ischemic Stroke/TIA Start: 06/11/25 19:16 Text: For PCU Patients: NIH and Neuro Check every 4 Status: Complete hours, PRN and with change in RN caregiver. Freq: [id number] Protocol: Activity Type Activity Date Activity User E-sign Co-sign Detail Recorded Client Recorded Date Recorded By Document 06/12/25 10:00 10..25.7 06/12/25 10:53 CG 06/12/25 10:00 NIH Stroke Scale [NIHSS] A score of 0 is normal or asymptomatic . Total possible score is 42. Inpatient: RN or Physician to activate a stroke alert for onset of new stroke symptoms or with NIHSS increase >/= 3 points. Following change in neurological status, NIHSS will be performed per physician order or more frequently PRN. -1a. Level of Consciousness 1 - Not alert; Arousable by minor stimuli to obey, answer & respond -1b. LOC Questions 1 - Answers ONE question correctly -1c. LOC Commands 0 - Performs BOTH tasks correctly -2. Best Gaze 0 - Normal -3. Visual 0 - No visual loss -4. Facial Palsy 0 - Normal symmetrical movements -5a. Left Arm 0 - No drift; arm holds 90 ( or 45) degrees for full 10 seconds -5b. Right Arm 0 - No drift; arm holds 90 ( or 45) degrees for full 10 seconds -6a. Left Leg 0 - No drift; leg holds 30- degree position for full 5 seconds -6b. Right Leg 0 - No drift; leg holds 30- degree position for full 5 seconds -7. Limb Ataxia 0 - Absent -8. Sensory 0 - Normal; no sensory loss -9. Best Language 0 - No aphasia; normal -10. Dysarthria 1 = Mild-to- moderate dysarthria; -11. Extinction and Inattention 0 - No abnormality -Total 3 Query Text:A score of 0 is normal or asymptomatic. Total possible score is 42 . ED: Notify Physician for NIHSS increase by > / = 3 points. Inpatient: RN or Physician to activate a stroke alert for NIHSS increase of > / = 3 points. Coma Scale [Assess] -Eye Opening To Voice -Motor Obeys Commands -Verbal Confused [Total] -Coma Scale Total 13
[2025-06-14 10:01] LABS: Allen Test Positive; Base Excess -6 mmol/L (-2 to +2); PO2 62 mmHG (75-100); SITE L Radial; SO2 93 % (95-99)
--- NOTE | 2025-06-14 13:29 | STROKE.CONS ---
Assessment and Plan: Stroke Assessment/Plan MACY OLMEDO is a 75 F with a history of MM on dexamethasone and velcade who presents for evaluation of AMS and was found to have incidental stroke on MRI brain that would not explain the extent of her symptoms. Her exam is benign and there are no cerebellar findings that would be from this very small incidental cerebellar stroke. Imaging with no clear athero. This would be considered a silent stroke, however in the setting of known multiple myeloma on bortezomib and dexamethasone there is likely some component of hypercoagulability linked with this. Normally treatment of MM with a lenolidamide and thalidomide along with GISSEL are associated with higher concern for stroke and would necessitate anticoagulation, however given patient is on a less thrombogenic agent and the stroke is silent will continue with antiplatelet therapy as below. - Anti-platelet medication: Aspirin 81 mg daily - Occupational/ Physical therapy consults - Swallow evaluation with CADD OPERATOR - Atrovastatin 40mg - LDL 141 - please obtain A1C - DVT prophylaxis with SCDs and heparin SQ - Vascular risk factor modification. The following are the recommended guidelines: LDL Goal < 70 Smoking Cessation Diabetes Management jail blood pressure control should achieve <130/80 mmHg. BP management should aim to achieve snf contorl in a reasonable amount of time, taking into consideration the individual patient's requirements and characteristics. Weight Management: Goal for BMI is 18.5 -24.9 kg/m2 Alcohol: No more than 2 drinks/day for men or 1 drink/day for non- women - Promote lifestyle modification: weight control, physical activity, moderation of alcohol intake, moderate sodium intake. Followup with hematology to consider further changes to chemotherapy regiment and followup with [facility] stroke in 6-12 weeks. Will sign off with respect to stroke. General Neurology to manage rest of pt's comorbidities. HPI Consult Data Date of Consult: 06/14/25 HPI Narrative HPI Narrative: MACY OLMEDO, is a 75 F who presents to the emergency room department confused. Today is a 5-year-old female with a history of multiple myeloma who had received transfusion this past Wednesday. Patient was noted to be normal around 8 AM and only returned home around 1330, she is on the ground side of bed and was confused. Stroke team was called patient was sent to the emergency room. Patient had CT CTA of the head neck that showed no acute process. Patient was seen by neurology who recommend additional workup with an MRI, echo and EEG. Patient is to continue sobriety history so history is obtained through the documentation as well as to the emergency room physician. Patient was also considered to be septic and patient did receive pip-tazo and vancomycin in the emergency room. Patient states she feels a lot better before. Never had a small stroke before. She last remembers lying on the floor of the ground and was saying ok, ok. Did not endorse weakness or numbness focally. Pt is on dexamethasone every wednesday and is on Velcade as well. Denies vision symptoms. No headaches. Has been on MM treatment for 6 months now. [facility] Medical History (Updated 06/11/25 @ 18:[address] Chucho Colón, DO) HTN (hypertension) Multiple myeloma Medical History unable to obtain Home Medications ?Medication ?Instructions ?Recorded ?Last Taken ?Type acyclovir 400 mg tablet 400 mg PO BID 12/27/19 Unknown History carvedilol 6.25 mg tablet 25 mg PO BID blood pressure 12/27/19 Unknown History dexamethasone 4 mg tablet 20 mg PO .COMPLEX 12/27/19 Unknown History albuterol 90 mcg/actuation aerosol 90 mcg inhalation Q6H PRN PRN 06/11/25 Unknown History inhaler wheezing amlodipine 5 mg tablet 5 mg PO DAILY PRN blood pressure 06/11/25 Unknown History cetirizine 10 mg tablet (24Hour 10 mg PO DAILY PRN allergy symptoms 06/11/25 Unknown History Allergy) cyanocobalamin (vitamin B-12) 5,000 mcg PO QWEEK 06/11/25 Unknown History 5,000 mcg capsule ergocalciferol (vitamin D2) 1,250 1,250 mcg PO QWEEK 06/11/25 Unknown History mcg (50,000 unit) capsule fluticasone furoate 50 1 inh inhalation DAILY 06/11/25 Unknown History mcg/actuation blister powder for inhalation (Arnuity Ellipta) gabapentin 300 mg capsule 300 mg PO QHS 06/11/25 Unknown History lenalidomide 10 mg capsule 10 mg PO DAILY 06/11/25 Unknown History (Revlimid) lisinopril 10 mg tablet 10 mg PO DAILY 06/11/25 Unknown History polysaccharide iron complex 150 mg 150 mg PO DAILY 06/11/25 Unknown History iron capsule (Ferrex) prochlorperazine maleate 10 mg 10 mg PO Q6H 06/11/25 Unknown History tablet (Compazine) Allergy/AdvReac Type Severity Reaction Status Date / Time naproxen (From Naprosyn) Allergy Mild Hives Verified 06/11/25 15:19 erythromycin base Allergy Hives Verified 10/19/22 12:11 lactose AdvReac Diarrhea Verified 10/19/22 12:11 Family History unable to obtain Surgical History unable to obtain Social History Smoking Status: Never smoker Vital Signs Vital Signs Vital Signs: 06/13/25 14:30 06/13/25 15:30 06/13/25 15:32 Temperature Temperature Source Pulse Rate 82 Respiratory Rate 20 H Respiratory Effort Normal Non-Labored Respiratory Depth Normal Respiratory Pattern Normal Tachypnea Blood Pressure Blood Pressure Mean Blood Pressure Source Blood Pressure Position Blood Pressure Location Pulse Ox 94 Oxygen Delivery Method Nasal Cannula Oxygen Flow Rate (L/min) 4 2 06/13/25 18:10 06/13/25 19:08 06/13/25 19:08 Temperature 97.4 F L Temperature Source Temporal Pulse Rate 87 94 Respiratory Rate 22 H 22 H Respiratory Effort Respiratory Depth Respiratory Pattern Tachypnea Blood Pressure 144/74 H Blood Pressure Mean 97 Blood Pressure Source Monitor Blood Pressure Position Semi-Fowlers Blood Pressure Location Left Arm Pulse Ox 94 92 Oxygen Delivery Method Nasal Cannula Nasal Cannula Oxygen Flow Rate (L/min) 2 2 06/13/25 21:24 06/13/25 22:00 06/13/25 23:20 Temperature 98.0 F Temperature Source Temporal Pulse Rate 94 90 Respiratory Rate 22 H 22 H Respiratory Effort Normal Non-Labored Respiratory Depth Normal Respiratory Pattern Normal Tachypnea Blood Pressure 141/94 H Blood Pressure Mean 109 Blood Pressure Source Monitor Blood Pressure Position Semi-Fowlers Blood Pressure Location Left Arm Pulse Ox 94 Oxygen Delivery Method Nasal Cannula Nasal Cannula Oxygen Flow Rate (L/min) 2 2 06/14/25 03:10 06/14/25 04:15 06/14/25 07:46 Temperature 97.9 F Temperature Source Temporal Pulse Rate 82 92 67 Respiratory Rate 20 H 20 H 26 H Respiratory Effort Respiratory Depth Respiratory Pattern Normal Tachypnea Blood Pressure 166/85 H Blood Pressure Mean 112 Blood Pressure Source Monitor Blood Pressure Position Semi-Fowlers Blood Pressure Location Left Arm Pulse Ox 93 Oxygen Delivery Method Nasal Cannula Oxygen Flow Rate (L/min) 2 06/14/25 07:46 06/14/25 08:29 06/14/25 08:46 Temperature 98.0 F Temperature Source Oral Pulse Rate 85 Respiratory Rate 20 H Respiratory Effort Normal Labored Respiratory Depth Respiratory Pattern Tachypnea Blood Pressure 167/117 H Blood Pressure Mean 133 Blood Pressure Source Monitor Blood Pressure Position Supine Blood Pressure Location Left Arm Pulse Ox 92 94 Oxygen Delivery Method Nasal Cannula Nasal Cannula Nasal Cannula Oxygen Flow Rate (L/min) 1 2 2 06/14/25 09:11 06/14/25 10:58 Temperature Temperature Source Pulse Rate 84 Respiratory Rate 24 H 28 H Respiratory Effort Respiratory Depth Respiratory Pattern Tachypnea Blood Pressure 159/94 H Blood Pressure Mean 115 Blood Pressure Source Monitor Blood Pressure Position Semi-Fowlers Blood Pressure Location Left Arm Pulse Ox 94 Oxygen Delivery Method Nasal Cannula Oxygen Flow Rate (L/min) 2 Weight Weight: 76.4 kg Body Mass Index (BMI) 31.8 EEG Results Procedure Details EEG Procedure Details: MACY OLMEDO is a 75 year old F with a past medical history of , who presents for evaluation of Electroencephalogram on DATE at TIME Lab / Micro Data 06/14/25 05:02 06/14/25 05:02 Labs: Laboratory Results - last 24 hr 06/13/25 15:48: Vancomycin Trough 18.1 H 06/14/25 05:02: WBC 16.2 H, RBC 3.42 L, Hgb 11.6 L, Hct 34.3 L, MCV 100.3 H, MCH 33.9 H, MCHC 33.8, RDW Std Deviation 58.1 H, RDW Coeff of Kameron 15.8 H, Plt Count 57 L, MPV 12.3 H, Immature Gran % (Auto) 0.500, Neut % (Auto) 94.4 H, Lymph % (Auto) 1.3 L, [place] % (Auto) 3.7, Eos % (Auto) 0.0, Baso % (Auto) 0.1, Absolute Neuts (auto) 15.3 H, Absolute Lymphs (auto) 0.21 L, Nucleated RBC % 0, Sodium 142, Potassium 3.5, Chloride 111 H, Carbon Dioxide 15.5 L, Anion Gap 16 H, BUN 37 H, Creatinine 1.71 H, Estim Creat Clear Calc 26.58 L, Est GFR (MDRD) Non-Af 31 L, BUN/Creatinine Ratio 21.9 H, Glucose 152 H, Calcium 7.7 Micro: Microbiology 06/12/25 15:25 Urine, Clean Catch Urine Culture - Final Culture exhibits no growth. 06/11/25 15:19 Blood Culture (Wb) - Right Forearm Blood Culture - Preliminary No growth in 48 hours. 06/11/25 14:57 Blood Culture (Wb) - Anticubital Right Blood Culture - Preliminary No growth in 48 hours. ABG Data ABG results: ABG 06/14/25 09:56 Specimen Type ART Sample Site L Radial pH 7.45 Bicarbonate Actual 18.0 L Total CO2 19 Base Excess -6 L O2 Saturation 93 L ABG pCO2 25.9 L ABG pO2 62 L Kamari Test Positive O2 Delivery Device Room Air Vent Mode Not entered Imaging Radiology Impression Brain MRI 06/13/25 09:00 IMPRESSION: 1. Questionable tiny focus of acute-subacute lacunar infarct in the superomedial right cerebellar hemisphere. Otherwise, no areas of recent infarct are present. 2. Moderate generalized volume loss and chronic small-vessel ischemic changes, with several tiny foci of old lacunar infarct in the best radiata and bilateral cerebellar hemispheres. 3. Small 13 mm presumed meningioma at the left frontal convexity. Reading Location: [facility] Chest X-Ray 06/14/25 09:51 IMPRESSION: 1. Subsegmental atelectasis left lung base. Otherwise no change. Reading Location: [facility] Active Medications Active Medications Active Medications: Current Medications Generic Name Dose Route Start Last Admin Trade Name Freq PRN Reason Stop Dose Admin Acetaminophen 650 mg 06/11/25 19:16 Acetaminophen 325 Mg Tablet PO Q6H PRN PRN Pain 1-10 Or Fever>100.7 Acyclovir 400 mg 06/11/25 22:00 06/14/25 09:43 Acyclovir 200 Mg Capsule PO 400 mg BID PATY Administration Albuterol Sulfate 2.5 mg 06/11/25 20:14 06/12/25 14:42 Albuterol 2.5 Mg/3 Ml Vial.Neb. INHALATION 2.5 mg Q6H PRN PRN Administration wheezing Albuterol/Ipratropium 3 ml 06/12/25 15:45 06/14/25 10:57 Ipratropium/Albuterol Sulfate 3 Ml Ampul.Neb INHALATION 3 ml Q4H.RT PATY Administration Amlodipine Besylate 5 mg 06/11/25 19:16 Amlodipine 5 Mg Tablet PO DAILY PRN blood pressure Protocol Budesonide 0.5 mg 06/11/25 20:15 06/14/25 07:43 Budesonide Respules 0.5 Mg/2 Ml Ampul.Neb. INHALATION 0.5 mg Q12H.RT PATY Administration Carvedilol 25 mg 06/11/25 22:00 06/14/25 09:43 Carvedilol 25 Mg Tablet PO 25 mg BID PATY Administration Cyanocobalamin 5,000 mcg 06/12/25 10:00 06/12/25 11:05 Cyanocobalamin 500 Mcg Tablet PO Not Given QWEEK PATY Ergocalciferol 1.25 mg 06/11/25 19:16 06/11/25 23:20 Ergocalciferol 1.25 Mg (50, 000 Unit) Capsule PO Not Given QWEEK PATY Guaifenesin 10 ml 06/14/25 00:03 06/14/25 05:14 Guaifenesin 10 Ml Udc (200mg/10ml) PO 10 ml Q4H PRN PRN Administration COUGH/CONGESTION Vancomycin HCl 1,250 mg/ 275 mls @ 167 mls/hr 06/12/25 17:00 06/13/25 20:20 Sodium Chloride IV Infused Q24H PATY Infusion Sodium Chloride 250 mls @ 15 mls/hr 06/11/25 23:49 IV .[id number] PRN Saline Flush Sodium Chloride 250 mls @ 15 mls/hr 06/11/25 23:49 IV .[id number] PRN Additional IVPB Infusion Lisinopril 10 mg 06/12/25 10:00 06/14/25 09:43 Lisinopril 10 Mg Tablet PO 10 mg DAILY PATY Administration Protocol Loratadine 10 mg 06/11/25 19:16 Loratadine 10 Mg Tablet PO DAILY PRN allergy symptoms Methylprednisolone Sodium Succinate 40 mg 06/12/25 14:00 06/14/25 05:16 Methylprednisolone Sod Succ 40 Mg/Ml Vial IV 40 mg Q8 PATY Administration Ondansetron HCl 4 mg 06/11/25 19:16 Ondansetron 4 Mg/2 Ml Vial IV Q8H PRN PRN NAUSEA/VOMITING Polysaccharide Iron Complex 150 mg 06/12/25 10:00 06/14/25 09:43 Iron Polysaccharide Complex 150 Mg Capsule PO 150 mg DAILY PATY Administration Sodium Chloride 10 - 40 ml 06/11/25 23:49 06/13/25 13:28 0.9% Saline Lock 10 Ml Syringe IV 10 ml UD PRN Administration SALINE FLUSH NIHSS NIHSS Nursing Documentation NIHSS Nursing Documentation: NIHSS: Ischemic Stroke/TIA Start: 06/11/25 19:16 Text: For PCU Patients: NIH and Neuro Check every 4 Status: Complete hours, PRN and with change in RN caregiver. Freq: [id number] Protocol: Activity Type Activity Date Activity User E-sign Co-sign Detail Recorded Client Recorded Date Recorded By Document 06/12/25 10:00 CG 10..25.7 06/12/25 10:53 CG 06/12/25 10:00 NIH Stroke Scale [NIHSS] A score of 0 is normal or asymptomatic . Total possible score is 42. Inpatient: RN or Physician to activate a stroke alert for onset of new stroke symptoms or with NIHSS increase >/= 3 points. Following change in neurological status, NIHSS will be performed per physician order or more frequently PRN. -1a. Level of Consciousness 1 - Not alert; Arousable by minor stimuli to obey, answer & respond -1b. LOC Questions 1 - Answers ONE question correctly -1c. LOC Commands 0 - Performs BOTH tasks correctly -2. Best Gaze 0 - Normal -3. Visual 0 - No visual loss -4. Facial Palsy 0 - Normal symmetrical movements -5a. Left Arm 0 - No drift; arm holds 90 ( or 45) degrees for full 10 seconds -5b. Right Arm 0 - No drift; arm holds 90 ( or 45) degrees for full 10 seconds -6a. Left Leg 0 - No drift; leg holds 30- degree position for full 5 seconds -6b. Right Leg 0 - No drift; leg holds 30- degree position for full 5 seconds -7. Limb Ataxia 0 - Absent -8. Sensory 0 - Normal; no sensory loss -9. Best Language 0 - No aphasia; normal -10. Dysarthria 1 = Mild-to- moderate dysarthria; -11. Extinction and Inattention 0 - No abnormality -Total 3 Query Text:A score of 0 is normal or asymptomatic. Total possible score is 42 . ED: Notify Physician for NIHSS increase by > / = 3 points. Inpatient: RN or Physician to activate a stroke alert for NIHSS increase of > / = 3 points. Coma Scale [Assess] -Eye Opening To Voice -Motor Obeys Commands -Verbal Confused [Total] -Coma Scale Total 13 NIHSS 1a. Level of Consciousness: 0 - Alert; keenly responsive 1b. LOC Questions: 0 - Answers BOTH questions correctly 1c. LOC Commands: 0 - Performs BOTH tasks correctly 2. Best Gaze: 0 - Normal 3. Visual: 0 - No visual loss 4. Facial Palsy: 0 - Normal symmetrical movements 5a. Left Arm: 0 - No drift; arm holds 90 (or 45) degrees for full 10 seconds 5b. Right Arm: 0 - No drift; arm holds 90 (or 45) degrees for full 10 seconds 6a. Left Le - No drift; leg holds 30-degree position for full 5 seconds 6b. Right Le - No drift; leg holds 30-degree position for full 5 seconds 7. Limb Ataxia: 0 - Absent 8. Sensory: 0 - Normal; no sensory loss 9. Best Language: 0 - No aphasia; normal 10. Dysarthria: 1 = [id number] dysarthria; 11. Extinction and Inattention: 0 - No abnormality Total: 1
--- NOTE | 2025-06-14 13:49 | CASEMGMT ---
Social Work Pt with possible stroke. SW met with pt and completed PHQ9. Score of 2 indicating minimal depression. Pt with no concerns at this time. SW also spoke with pt regarding dischrage plan. Pt is agreeable to outpt PT at [facility]. Order faxed to [facility] and requested [facility] contact pt's to set an appointment. KWAN Balderas
[2025-06-14] MEDS: 0.9% Saline Lock 10 ML Syringe IV ×2 (15:44→22:02)
[2025-06-15] VITALS (8 sets, daily range): BP systolic 129–159; BP diastolic 81–83; PULSE 70–86; RESP 14–22; TEMP 36.3–36.5; O2SAT 89–96; BMI 31.8
[2025-06-15 06:46] LABS: Hematocrit 34.4 % (37-47); Hemoglobin 11.5 g/dL (12.0-15.0); Immature Granulocytes Count 0.080 X10^3/uL (0.0-0.0); Mean Corp Hgb Conc 33.4 g/dL (32-36); Mean Corpuscular Volume 100.3 fL (81-99); Mean Platelet Vol. 12.5 fl (6.2-12.0); NRBC Flagged by Analyzer 0 % (0-5); POSITIVE COUNT YES; POSITIVE DIFFERENTIAL YES; Platelet Count 64 K/mm3 (150-450); RBC Distribution Width CV 15.9 % (11.6-14.6); RBC Distribution Width SD 59.2 fl (35.1-43.9); Red Blood Count 3.43 M/mm3 (4.2-5.4); White Blood Count 14.8 K/mm3 (4.4-11.0)
[2025-06-15 06:49] LABS: Differential Indicated SCAN CRITERIA MET
[2025-06-15] MEDS: Budesonide Respules 0.5 MG/2 ML AMPUL.NEB. INHALATION (07:18)
[2025-06-15 07:48] LABS: Anion Gap 15 (5-15); BUN 36 mg/dL (4-19); BUN/Creat Ratio 28.1 RATIO (10-20); Calcium,Total 8.0 mg/dL (7.6-11.0); Carbon Dioxide 15.8 mmol/L (21.0-32.0); Chloride 110 mmol/L (98-108); Estimated Creatinine Clearance 35.24 ml/min (50-250); Glucose 138 mg/dL (70-99); Potassium 3.7 mmol/L (3.3-5.1)
--- NOTE | 2025-06-15 07:52 | PCM.PN.HOSP ---
Reason for Visit Chief Complaint: Confusion Subjective Subjective Patient seen clinical condition much improved. Plan is for patient to be assessed for discharge with home O2 assessment needs. Objective Data Objective Data Vital Signs: Vital Signs Temp Pulse Resp BP Pulse Ox O2 Del Method O2 Flow Rate 97.3 F L 70 22 H 159/81 H 95 Nasal Cannula 2 06/15/25 03:09 06/15/25 03:35 06/15/25 03:35 06/15/25 03:09 06/15/25 03:09 06/15/25 03:09 06/15/25 03:09 Oxygen Flow Rate (L/min) 2 Oxygen Delivery Method Nasal Cannula Weight: 76.4 kg Body Mass Index (BMI) 31.8 Intake & Output: Intake and Output for Last 24 Hours 06/13/25 06/14/25 06/15/25 23:59 23:59 23:59 Intake Total 965.00 / 965.00 550 / 550 Output Total 850 / 850 150 / 150 Balance 115.00 / 115.00 400 / 400 Lab / Micro Data 06/15/25 05:57 06/15/25 05:57 Labs: Laboratory Results - last 24 hr 06/15/25 05:57: WBC 14.8 H, RBC 3.43 L, Hgb 11.5 L, Hct 34.4 L, MCV 100.3 H, MCH 33.5 H, MCHC 33.4, RDW Std Deviation 59.2 H, RDW Coeff of Kameron 15.9 H, Plt Count 64 L, MPV 12.5 H, Immature Gran % (Auto) 0.500, Neut % (Auto) 95.3 H, Lymph % (Auto) 1.0 L, [place] % (Auto) 3.1, Eos % (Auto) 0.0, Baso % (Auto) 0.1, Absolute Neuts (auto) 14.1 H, Absolute Lymphs (auto) 0.15 L, Nucleated RBC % 0, Sodium 141, Potassium 3.7, Chloride 110 H, Carbon Dioxide 15.8 L, Anion Gap 15, BUN 36 H, Creatinine 1.29 H, Estim Creat Clear Calc 35.24 L, Est GFR (MDRD) Non-Af 43 L, BUN/Creatinine Ratio 28.1 H, Glucose 138 H, Calcium 8.0 Micro: Microbiology 06/12/25 15:25 Urine, Clean Catch Urine Culture - Final Culture exhibits no growth. 06/11/25 15:19 Blood Culture (Wb) - Right Forearm Blood Culture - Preliminary No growth in 48 hours. 06/11/25 14:57 Blood Culture (Wb) - Anticubital Right Blood Culture - Preliminary No growth in 48 hours. 06/11/25 14:37 Urine Catheter - Reveles Legionella Antigen - Final 06/11/25 14:37 Urine Catheter - Reveles Streptococcus pneumoniae Antigen (M - Final 06/11/25 14:57 Mucosa - Nose SARS-CoV-2, Influenza & RSV (PCR) - Final ABG Data ABG results: ABG 06/14/25 09:56 Specimen Type ART Sample Site L Radial pH 7.45 Bicarbonate Actual 18.0 L Total CO2 19 Base Excess -6 L O2 Saturation 93 L ABG pCO2 25.9 L ABG pO2 62 L Kaamri Test Positive O2 Delivery Device Room Air Vent Mode Not entered Radiography Diagnostic Testing: Radiology Impression Chest X-Ray 06/14/25 09:51 IMPRESSION: 1. Subsegmental atelectasis left lung base. Otherwise no change. Reading Location: [facility] Physical Exam Narrative GENERAL: cooperative, HEENT: Atraumatic; normocephalic EYES; Anicteric, Normal Conjunctiva NECK; supple, normal thyroid, RESPIRATORY: Diminished to auscultation with no wheezes CARDIOVASCULAR: Regular S1 S2, GI: soft, normoactive bowel sounds, : No Renal angle tenderness; EXTREMITIES: No edema, no clubbing, MUSCULOSKELETAL: no muscle wasting NEURO: Awake; no lateralizing signs. SKIN: No Rash PSYCH; Flat affect Assessment & Plan Assessment/Plan (1) Encephalopathy: PLAN: Plan Patient is a 75-year-old lady with history of multiple myeloma who presented with altered mental status 1. Acute encephalopathy Thought to be secondary to toxic encephalopathy from gabapentin as well as metabolic encephalopathy from UTI. Suspected offending medications held. Consult placed to neurology ? 06/13/2025; patient appears to be back to her baseline scheduled to undergo MRI of the brain. ? 06/14/2025 MRI did show questionable tiny focus of acute-subacute lacunar infarct in the superomedial right cerebellar hemisphere. Otherwise, no areas of recent infarct are present.. Location of patient questionable infarct not consistent with her presentation ? 06/15/2025; Case was discussed with [facility] telemetry neurologist Dr. Brian mehta prior recommendation is for patient to be discharged with aspirin as well as statin and a 30-day Holter monitoring. 2. Suspected sepsis ? Suspected secondary to UTI. Urinalysis demonstrated positive urine nitrites however had normal WBC count. Started on broad-spectrum antibiotic therapy cultures sent ? Patient remains on broad-spectrum antibiotic therapy pending culture results ? 06/14/2025; discontinued antibiotic therapy since patient cultures have all come back negative most show patient kidney function has worsened 3. Acute bronchospasm ? Per patient's who was in the room patient has history of asthma. Ordered bronchodilator treatment as well as systemic steroids ? 06/14/2025; patient was found to be more dyspneic this a.m. ordered chest x-ray and ABG ? 06/15/2025; checks x-ray today prior demonstrated subsegmental atelectasis left lung base. Plans for patient to be assessed for home oxygen needs prior to discharge 4. Multiple myeloma ? Patient to follow-up with primary oncologist for subsequent care. Patient is on lenalidomide 5. Anemia ? Secondary to multiple myeloma monitoring H&H 6. Thrombocytopenia ? Secondary to multiple myeloma monitoring with CBC with differential 7. Hypertension ? Blood pressure controlled, home medications continued with dose adjustment as needed 8. DVT prophylaxis ? SCDs only given patient low platelets 9. Acute on chronic kidney disease stage IIIa ? Patient creatinine on admission was 1.24 up to 1.71 reviewed meds and discontinued potential nephrotoxic medication.. Patient was on both the paroxetine/tazobactam and vancomycin discontinued given the fact the patient cultures have remained negative to date Time spent in the patient's overall evaluation,decision-making process, review of diagnostic data, adjustment of management, discussion with other providers, nursing nursing and ancillary staff involved in patient's care documentation, 38 Minutes Charges/Coding Visit Charges Inpatient E&M: 55900 Disch Hosp >30min NIHSS NIHSS Nursing Documentation NIHSS Nursing Documentation: NIHSS: Ischemic Stroke/TIA Start: 06/11/25 19:16 Text: For PCU Patients: NIH and Neuro Check every 4 Status: Complete hours, PRN and with change in RN caregiver. Freq: [id number] Protocol: Activity Type Activity Date Activity User E-sign Co-sign Detail Recorded Client Recorded Date Recorded By Document 06/12/25 10:00 CG 10..25.7 06/12/25 10:53 CG 06/12/25 10:00 NIH Stroke Scale [NIHSS] A score of 0 is normal or asymptomatic . Total possible score is 42. Inpatient: RN or Physician to activate a stroke alert for onset of new stroke symptoms or with NIHSS increase >/= 3 points. Following change in neurological status, NIHSS will be performed per physician order or more frequently PRN. -1a. Level of Consciousness 1 - Not alert; Arousable by minor stimuli to obey, answer & respond -1b. LOC Questions 1 - Answers ONE question correctly -1c. LOC Commands 0 - Performs BOTH tasks correctly -2. Best Gaze 0 - Normal -3. Visual 0 - No visual loss -4. Facial Palsy 0 - Normal symmetrical movements -5a. Left Arm 0 - No drift; arm holds 90 ( or 45) degrees for full 10 seconds -5b. Right Arm 0 - No drift; arm holds 90 ( or 45) degrees for full 10 seconds -6a. Left Leg 0 - No drift; leg holds 30- degree position for full 5 seconds -6b. Right Leg 0 - No drift; leg holds 30- degree position for full 5 seconds -7. Limb Ataxia 0 - Absent -8. Sensory 0 - Normal; no sensory loss -9. Best Language 0 - No aphasia; normal -10. Dysarthria 1 = Mild-to- moderate dysarthria; -11. Extinction and Inattention 0 - No abnormality -Total 3 Query Text:A score of 0 is normal or asymptomatic. Total possible score is 42 . ED: Notify Physician for NIHSS increase by > / = 3 points. Inpatient: RN or Physician to activate a stroke alert for NIHSS increase of > / = 3 points. Coma Scale [Assess] -Eye Opening To Voice -Motor Obeys Commands -Verbal Confused [Total] -Coma Scale Total 13
--- NOTE | 2025-06-15 09:29 | PCM.DC.SUM ---
Providers Date of Admission: 06/11/25 Date of Discharge: 06/15/25 Primary Care Physician: Dr. Quique Latif, DO Consultations 06/11/25 19:16 Consult: Tele-Neurology Routine Consulting Provider: [facility] Reason for Consult: Acute Ischemic Stroke/TIA EMERGENT Consult: No MD Notified: Yes Date Notified: 06/11/25 Time Notified: 18:26 Method of Notification: ED Physician Initiated Nursing Unit Staff Notify [facility] of Tele-Neurology Consult: Yes Reason For Visit: ENCEPHALOPATHY Diagnosis Discharge Diagnosis (1) Encephalopathy: Status: Acute Code(s): G93.40 - Encephalopathy, unspecified Plan Patient is a 75-year-old lady with history of multiple myeloma who presented with altered mental status 1. Acute encephalopathy Thought to be secondary to toxic encephalopathy from gabapentin as well as metabolic encephalopathy from UTI. Suspected offending medications held. Consult placed to neurology ? 06/13/2025; patient appears to be back to her baseline scheduled to undergo MRI of the brain. ? 06/14/2025 MRI did show questionable tiny focus of acute-subacute lacunar infarct in the superomedial right cerebellar hemisphere. Otherwise, no areas of recent infarct are present.. Location of patient questionable infarct not consistent with her presentation ? 06/15/2025; Case was discussed with [facility] telemetry neurologist Dr. Duke the day prior recommendation is for patient to be discharged with aspirin as well as statin and a 30-day Holter monitoring. 2. Suspected sepsis ? Suspected secondary to UTI. Urinalysis demonstrated positive urine nitrites however had normal WBC count. Started on broad-spectrum antibiotic therapy cultures sent ? Patient remains on broad-spectrum antibiotic therapy pending culture results ? 06/14/2025; discontinued antibiotic therapy since patient cultures have all come back negative most show patient kidney function has worsened 3. Acute bronchospasm ? Per patient's who was in the room patient has history of asthma. Ordered bronchodilator treatment as well as systemic steroids ? 06/14/2025; patient was found to be more dyspneic this a.m. ordered chest x-ray and ABG ? 06/15/2025; checks x-ray today prior demonstrated subsegmental atelectasis left lung base. Plans for patient to be assessed for home oxygen needs prior to discharge. Patient did not qualify for home oxygen after assessment 4. Multiple myeloma ? Patient to follow-up with primary oncologist for subsequent care. Patient is on lenalidomide 5. Anemia ? Secondary to multiple myeloma monitoring H&H 6. Thrombocytopenia ? Secondary to multiple myeloma monitoring with CBC with differential 7. Hypertension ? Blood pressure controlled, home medications continued with dose adjustment as needed 8. DVT prophylaxis ? SCDs only given patient low platelets 9. Acute on chronic kidney disease stage IIIa ? Patient creatinine on admission was 1.24 up to 1.71 reviewed meds and discontinued potential nephrotoxic medication.. Patient was on both the paroxetine/tazobactam and vancomycin discontinued given the fact the patient cultures have remained negative to date Time spent in the patient's overall evaluation,decision-making process, review of diagnostic data, adjustment of management, discussion with other providers, nursing nursing and ancillary staff involved in patient's care documentation, 38 Minutes Medications at Discharge Home Medications acyclovir 400 mg tablet 400 mg PO BID 12/27/19 carvedilol 6.25 mg tablet 25 mg PO BID blood pressure 12/27/19 dexamethasone 4 mg tablet 20 mg PO .COMPLEX 12/27/19 albuterol 90 mcg/actuation aerosol inhaler 90 mcg inhalation Q6H PRN PRN wheezing 06/11/25 amlodipine 5 mg tablet 5 mg PO DAILY PRN blood pressure 06/11/25 cetirizine 10 mg tablet (24Hour Allergy) 10 mg PO DAILY PRN allergy symptoms 06/11/25 cyanocobalamin (vitamin B-12) 5,000 mcg capsule 5,000 mcg PO QWEEK 06/11/25 ergocalciferol (vitamin D2) 1,250 mcg (50,000 unit) capsule 1,250 mcg PO QWEEK 06/11/25 fluticasone furoate 50 mcg/actuation blister powder for inhalation (Arnuity Ellipta) 1 inh inhalation DAILY 06/11/25 gabapentin 300 mg capsule 300 mg PO QHS 06/11/25 lenalidomide 10 mg capsule (Revlimid) 10 mg PO DAILY 06/11/25 lisinopril 10 mg tablet 10 mg PO DAILY 06/11/25 polysaccharide iron complex 150 mg iron capsule (Ferrex) 150 mg PO DAILY 06/11/25 prochlorperazine maleate 10 mg tablet (Compazine) 10 mg PO Q6H 06/11/25 aspirin 81 mg tablet 81 mg PO DAILY #90 tabs 06/15/25 atorvastatin 40 mg tablet (Lipitor) 40 mg PO QHS #90 tabs 06/15/25 cefdinir 300 mg capsule 300 mg PO BID #10 caps 06/15/25 guaifenesin 600 mg tablet, extended release 12 hr (Mucinex) 1,200 mg (2 x 600 mg) PO BID #20 tabs 06/15/25 prednisone 20 mg tablet 20 mg PO BID #14 tabs 06/15/25 Physical Exam Narrative GENERAL: cooperative, HEENT: Atraumatic; normocephalic EYES; Anicteric, Normal Conjunctiva NECK; supple, normal thyroid, RESPIRATORY: Diminished to auscultation with no wheezes CARDIOVASCULAR: Regular S1 S2, GI: soft, normoactive bowel sounds, : No Renal angle tenderness; EXTREMITIES: No edema, no clubbing, MUSCULOSKELETAL: no muscle wasting NEURO: Awake; no lateralizing signs. SKIN: No Rash PSYCH; Flat affect Weight / BMI Weight Weight: 76.4 kg Body Mass Index (BMI) 31.8 ABG / Lab / Microbiology Data 06/15/25 05:57 06/15/25 05:57 Laboratory: Laboratory Results - last 24 hr 06/15/25 05:57: WBC 14.8 H, RBC 3.43 L, Hgb 11.5 L, Hct 34.4 L, MCV 100.3 H, MCH 33.5 H, MCHC 33.4, RDW Std Deviation 59.2 H, RDW Coeff of Kameron 15.9 H, Plt Count 64 L, MPV 12.5 H, Immature Gran % (Auto) 0.500, Neut % (Auto) 95.3 H, Lymph % (Auto) 1.0 L, [place] % (Auto) 3.1, Eos % (Auto) 0.0, Baso % (Auto) 0.1, Absolute Neuts (auto) 14.1 H, Absolute Lymphs (auto) 0.15 L, Nucleated RBC % 0, Platelet Estimate MOD DEC, Sodium 141, Potassium 3.7, Chloride 110 H, Carbon Dioxide 15.8 L, Anion Gap 15, BUN 36 H, Creatinine 1.29 H, Estim Creat Clear Calc 35.24 L, Est GFR (MDRD) Non-Af 43 L, BUN/Creatinine Ratio 28.1 H, Glucose 138 H, Calcium 8.0 Microbiology: Microbiology 06/12/25 15:25 Urine, Clean Catch Urine Culture - Final Culture exhibits no growth. 06/11/25 15:19 Blood Culture (Wb) - Right Forearm Blood Culture - Preliminary No growth in 48 hours. 06/11/25 14:57 Blood Culture (Wb) - Anticubital Right Blood Culture - Preliminary No growth in 48 hours. 06/11/25 14:37 Urine Catheter - Reveles Legionella Antigen - Final 06/11/25 14:37 Urine Catheter - Reveles Streptococcus pneumoniae Antigen (M - Final 06/11/25 14:57 Mucosa - Nose SARS-CoV-2, Influenza & RSV (PCR) - Final ABG: ABG 06/14/25 09:56 Specimen Type ART Sample Site L Radial pH 7.45 Bicarbonate Actual 18.0 L Total CO2 19 Base Excess -6 L O2 Saturation 93 L ABG pCO2 25.9 L ABG pO2 62 L Kamari Test Positive O2 Delivery Device Room Air Vent Mode Not entered Radiography Diagnostic Testing: Radiology Impression Chest X-Ray 06/14/25 09:51 IMPRESSION: 1. Subsegmental atelectasis left lung base. Otherwise no change. Reading Location: [id number] Instructions Discharge Activity: Return to Normal Activity Call your doctor if you observe: Fever of 101 or Higher, Shortness of breath, Fainting spells and Chest pain DC O2, CPAP, BIPAP Needs Home O2 Discharge instructions: No DC home with Oxygen: No Meaningful Use Info Meaningful Use Meaningful Use Diagnoses (Choose all that apply): None applicable Discharge Plan Admission Admit Date/Time: 06/11/25 18:21 Attending Provider: Rowdy Langley Primary Care Provider: Quique Latif Consulting Providers: Luis Choe; Pao Stinson; Shania Payne; Marlen Lei; Debo Duke; Logan Arenas; Michelle Pina; Onesimo Payne; Jordan Curtis; Henrry Flannery; Carmencita Jones; Percy Sequeira; Susie You; Ramírez Hutson; Josi Yoon; Gavin Cabrera; Shannan Venegas; Guillermo Gibson; Latanya Rizo; Sotero Zamorano; Chucho Colón Discharge Orders/Prescriptions Prescriptions: New aspirin 81 mg tablet 81 mg PO DAILY Qty: 90 0RF atorvastatin [Lipitor] 40 mg tablet 40 mg PO QHS Qty: 90 0RF prednisone 20 mg tablet 20 mg PO BID Qty: 14 0RF cefdinir 300 mg capsule 300 mg PO BID Qty: 10 0RF guaifenesin [Mucinex] 600 mg tablet extended release 12hr 1,200 mg PO BID Qty: 20 0RF Continued carvedilol 6.25 MG tablet 25 mg PO BID acyclovir 400 MG tablet 400 mg PO BID dexamethasone 4 mg tablet 20 mg PO .COMPLEX Rx Instructions: day 1 and day 8 of chemo amlodipine 5 mg tablet 5 mg PO DAILY PRN (Reason: blood pressure) Rx Instructions: as needed for blood pressure >140/90 cyanocobalamin (vitamin B-12) 5,000 mcg capsule 5,000 mcg PO QWEEK gabapentin 300 mg capsule 300 mg PO QHS ergocalciferol (vitamin D2) 1,250 mcg (50,000 unit) capsule 1,250 mcg PO QWEEK fluticasone furoate [Arnuity Ellipta] 50 mcg/actuation blister with device 1 inh INHALATION DAILY polysaccharide iron complex [Ferrex 150] 150 mg iron capsule 150 mg PO DAILY lenalidomide [Revlimid] 10 mg capsule 10 mg PO DAILY Rx Instructions: swallow whole with glass of water; do not open, crush, chew , break, or dissolve lisinopril 10 mg tablet 10 mg PO DAILY prochlorperazine maleate [Compazine] 10 mg tablet 10 mg PO Q6H albuterol 90 mcg/actuation aerosol 90 mcg inhalation Q6H PRN PRN (Reason: wheezing) cetirizine [24Hour Allergy] 10 mg tablet 10 mg PO DAILY PRN (Reason: allergy symptoms) Other Ambulatory Orders: 30 Day Event Recorder Preventi (Urgent) Timeframe: 1 Day Facility: [facility] [place] - Location: Cardiovascular Services Ordered By: Dr. Rowdy Langley Referrals / Follow Up: Quique Latif DO [Primary Care Provider] - Disposition Disposition (needs filled in before D/C Order can be placed): Home, Self Care Charges/Coding Visit Charges Inpatient E&M: 74482 Disch Hosp >30min
== END 2025-06-15 12:57 | disposition home or self-care (01) | DRG 871 ==
LOC: ED 16:56 → PCU 18:57
PROVIDERS: Emergency Provider Student in an Organized Health Care Education/Training Program; PCP Student in an Organized Health Care Education/Training Program; Referring Provider Student in an Organized Health Care Education/Training Program; Visit Provider Internal Medicine
DX: A41.9 Sepsis, unspecified organism (principal); I63.9 Cerebral infarction, unspecified; G92.8 Other toxic encephalopathy; G93.41 Metabolic encephalopathy; C90.00 Multiple myeloma not having achieved remission; I24.89 Other forms of acute ischemic heart disease; N17.9 Acute kidney failure, unspecified; R47.01 Aphasia; N18.31 Chronic kidney disease, stage 3a; D69.59 Other secondary thrombocytopenia; I12.9 Hypertensive chronic kidney disease with stage 1 through stage 4 chronic kidney disease, or unspecified chronic kidney disease; D63.0 Anemia in neoplastic disease; J98.01 Acute bronchospasm; R47.1 Dysarthria and anarthria; R29.712 NIHSS score 12; T42.6X5A Adverse effect of other antiepileptic and sedative-hypnotic drugs, initial encounter; Z79.899 Other long term (current) drug therapy
CPT/HCPCS: 36415; 36600; 51702; 70450; 70496; 70498; 70551; 71045; 71250; 74150; 80048; 80053; 80061; 80202; 80307; 81001; 82140; 82803; 83605; 83735; 84100; 84443; 84484; 85025; 85610; 85730; 87040; 87086; 87449; 87631; 92526; 92610; 93005; 93306; 94640; 94762; 97116; 97162; 97166; 97530; 97535; 99285; Q9957; Q9967; A4216

== ENCOUNTER 2025-08-01 11:00 | Outpatient (RCR) | payer MEDICARE, SELFPAY ==
--- NOTE | 2025-06-26 16:49 | HP.PTEVAL ---
Patient's Visit Information Visit Information Visit Information: MACY OLMEDO is a 75 year old F referred to Physical Therapy by Dr. Rowdy Langley MD with a diagnosis of DEBILITY. Date of Evaluation: 06/20/25 Physical Therapist: Lovely De La O PT, Cert MDT Visit Plan Frequency: 2x /Week Duration: 6-8 WEEKS Plan: GAIT TRAINING WITH FWW (PATIENT IS CURRENTLY USING STANDARD WALKER AND FWW RECOMMENDED - PATIENT TO BRING WHEELS FOR WALKER NEXT VISIT). GAIT AND BALANCE TRAINING. FABIANA LE STRENGTH TRAINING. FABIANA HS AND CALF STRETCHING. HEP INSTRUCTION. PATIENT TAUGHT WALKER AND TRANSFER SAFETY TODAY. Subjective Subjective: Work/Leisure: RETIRED Present symptoms: WEAKNESS. PATIENT DENIES PAIN AND DENIES TAKING PAIN MEDICINE. Present since: ABOUT 5 YEARS BUT WORSE SINCE FALL. Is it getting better, worse or staying the same: GETTING BETTER Commenced as a result of: MULTIPLE MYELOMA AND RECENT FALL Treatment this episode: HOSPITALIZED 06/11/25 TO 06/14/25 AT [facility]. Gait: 06/11/25 PATIENT AND REPORT PATIENT FELL OUT OF BED OR TRYING TO GET OUT OF BED. HER WASN'T HOME AT THE TIME AND FOUND HER UNRESPONSIVE ON THE BEDROOM FLOOR. DX'D WITH POSSIBLE MINI-STROKE. PATIENT REPORTS SHE HAS BEEN GETTING PROGRESSIVELY MORE WEAKNESS OVER THE LAST SEVERAL YEARS BUT PRIOR TO THIS FALL SHE WAS NOT USING AN ASSISTIVE DEVICE. PATIENT DENIES ANY OTHER FALLS. Unexplained weight loss: PATIENT REPORTS ABOUT 5-10 LB WEIGHT LOSS OVER APPROX THE PAST MONTH DUE TO POOR APPETITE. PMH/Recent major surgery: MULTIPLE MYELOMA, HTN Objective Objective: THIS PATIENT STARTED TO WALK BACK TO THE TREATMENT ROOM FROM THE WAITING ROOM WITH HER STANDARD WALKER BUT BEGAN TO FATIGUE AND BECOME UNSTEADY AND UNSAFE AT APPROX 100 FEET. SHE WAS TAKEN THE REST OF THE WAY BACK TO THE TREATMENT ROOM IN A W/C. SHE HAS DECREASED SAFETY AWARENESS. HER JF PARKED THE CAR THEN JOINED US TO HELP WITH HER HISTORY. THEY ARRIVED FOR EVAL LATE DUE TO TRAFFIC BUT ARE BOTH PLEASANT AND COOPERATIVE TO WORK WITH. Sitting/Standing Posture: FH, RSH'S. INCREASED KYPHOSIS. INCREASED TRUNK FLEXION AND OVER-ALL FLEXED POSTURE. Other Observations: PATIENT IS INDEP WITH TRANSFERS BUT UE DEPENDENT STS AND REVERSE. Sensory deficit: FABIANA LE LIGHT TOUCH SENSATION IS GROSSLY INTACT AND SYMMETRICAL. ROM deficit: FABIANA LE HS AND CALF TIGHTNESS. Motor deficit: FABIANA HIPS GROSSLY 3+ TO 4-/5, KNEES 4-/5, ANKLES 4-/5. Lumbar mvmt loss: flex - MOD ext - SWATHI R SG - SWATHI L SG - SWATHI Core strength: POOR TUG TIME: 1:20.[address] WALKER AND CG +1 30" STS TEST: 2 WITH FABIANA UE ASSIST. Balance/Special Test Scores Lower Extremity Functional Score: 20 Goals Goal 1:: PATIENT WILL COMPLETE 6 STANDS IN 30 SECS WITH ONE UE ASSIST INDEP'LY AND SAFELY TO DEMONSTRATE IMPROVED FUNCTIONAL STRENGTH. Goal Time Frame: 4-6 Weeks Goal 2:: PATIENT WILL COMPLETE TUG IN < 30 SECS WITH FWW INDEP'LY AND SAFELY TO DEMONSTRATE IMPROVED GAIT STABILITY Goal Time Frame: 4-6 Weeks Goal 3:: PATIENT WILL BE ABLE TO STAND AND WALK FOR AT LEAST 5 MINUTES WITH FWW IN ORDER TO IMPROVE PERFORMANCE OF ADL'S AND IADL'S. Goal Time Frame: 4-6 Weeks Goal 4:: PATIENT WILL BE INDEP WITH A HEP FOR CONTINUED IMPROVEMENT ONCE FORMAL PHYSICAL THERAPY CONCLUDE Goal Time Frame: 4-6 Weeks Rehabilitation Potential Physical Therapy Diagnosis: GENERAL WEAKNESS AND GAIT DIFFICULTY. Rehabilitation Potential: Good Anticipated Interventions Patient/Client Instruction: Educate patient on: Condition, Plan of Care and Risk Factors For the Purpose of:: To improve self management Therapeutic Exercise to Include: Strength training, Endurance training, Balance training, Postural training, Flexibilty training, Gait and locomotor training and Neuromotor development For the Purpose of:: To improve muscle performance and motor function, To improve ability to perform ADL's, To increase tolerance to activity/condition/position, To improve ability of physical actions for home/community/work/leisure, To improve gait and locomotor functions, To improve endurance, To improve balance, To improve safety with gait and To improve self management Text: Thank you for the opportunity to evaluate your patient. For Medicare and Medicare HMO plans, please review the plan of care and approve it. It will need to be FAXED BACK to us at [phone] for Medicare purposes. For Medicare only, by signing this I certify the plan of care. Please let me know if there are questions or concerns regarding this plan of care. Physician Signature: Date:
--- NOTE | 2025-09-05 13:54 | HP.PT.NRP ---
Patient Information Patient Information: MACY OLMEDO was seen in my office for initial evaluation on 06/20/25. The following Plan of Care was established for this patient: POC Established Initial Frequency: 2x /Week Initial Duration: 6-8 WEEKS Anticipated Interventions Patient/Client Instruction: Educate patient on: Condition, Plan of Care and Risk Factors For the Purpose of:: To improve self management Therapeutic Exercise to Include: Strength training, Endurance training, Balance training, Postural training, Flexibilty training, Gait and locomotor training and Neuromotor development For the Purpose of:: To improve muscle performance and motor function, To improve ability to perform ADL's, To increase tolerance to activity/condition/position, To improve ability of physical actions for home/community/work/leisure, To improve gait and locomotor functions, To improve endurance, To improve balance, To improve safety with gait and To improve self management Last Seen Last Seen: This patient was last seen in our office 08/01/25. Pertinent comments regarding their Physical therapy will appear below: It has been my pleasure to see this patient for a total of 4 visits. This patient has not returned to Physical Therapy for more visits and is appropriate to return to MD for further follow-up as needed. At this point I will be discontinuing this patient from physical therapy. I would be happy to see this patient again in the future if found appropriate by the physician. Thank you! Lovely De La O, PT, Cert MDT Balance/Gait/Functional tests Balance/Special Test Scores Lower Extremity Functional Score: 20
== END 2025-08-01 19:00 | disposition home or self-care (01) ==
LOC: PT 11:00
PROVIDERS: PCP Student in an Organized Health Care Education/Training Program; Referring Provider Internal Medicine; Visit Provider Internal Medicine
DX: C90.00 Multiple myeloma not having achieved remission (principal); R53.81 Other malaise
CPT/HCPCS: 97110; 97113; 97162; 97530